=== PATIENT | female | born 1935 | race Caucasian/White ===

== ENCOUNTER 2020-04-05 07:23 | Outpatient (REF) | payer MEDICARE, SELFPAY ==
[2020-04-05 07:47] LABS: Hematocrit 36.5 % (37-47); Hemoglobin 11.8 g/dl (12.0-16.0); Mean Corpuscular HGB Conc 32.3 g/dl (31.0-35.0); Mean Corpuscular Hemoglobin 29.2 pg (27.0-33.0); Mean Corpuscular Volume 90.3 fL (80-98); Mean Platelet Volume 11.2 fL (9.4-12.3); Platelet Count 251 X10*3/uL (160-400); Red Blood Count 4.04 X10*6/uL (4.20-5.50); White Blood Count 8.1 X10*3/uL (4.8-10.8)
[2020-04-05 08:05] LABS: Alanine Aminotransferase 19 U/L (0-31); Albumin Level 4.4 g/dL (3.5-5.0); Alkaline Phosphatase 43 U/L (39-117); Anion Gap 12 (12-20); Aspartate Amino Transferase 18 U/L (5-31); Bilirubin Direct < 0.2 mg/dL (0.0-0.5); Bilirubin Total 0.3 mg/dL (0.0-1.0); Blood Urea Nitrogen 29 mg/dL (9-16); Calcium 9.5 mg/dL (8.4-10.2); Carbon Dioxide 30 mmol/L (22-29); Chloride 102 mmol/L (96-108); Cholesterol 172 mg/dL; Estimated Glomerular Filt Rate 41; Glucose Random 134 mg/dL (60-115); HDL Cholesterol 59 mg/dL; LDL Cholesterol Calculated 88 mg/dl; Sodium 140 mmol/L (135-145); Total Protein 7.6 g/dL (6.5-8.0); Triglycerides 128 mg/dL
== END 2020-04-05 07:24 | disposition home or self-care (01) ==
LOC: HO.LAB 07:23
PROVIDERS: Visit Provider Internal Medicine
DX: I10 Essential (primary) hypertension (principal); M47.9 Spondylosis, unspecified; F41.1 Generalized anxiety disorder
CPT/HCPCS: 36415; 80048; 80061; 80076; 85027

== ENCOUNTER → 2020-04-23 10:01 | Outpatient (BNV) | payer MEDICARE, SELFPAY | PROVIDERS: PCP Internal Medicine; Visit Provider Internal Medicine Medical Oncology | DX: C50.912 Malignant neoplasm of unspecified site of left female breast (principal) | CPT/HCPCS: 99213; 99214; 99443 ==

== ENCOUNTER → 2020-05-14 10:24 | Outpatient (BNVA) | payer MEDICARE, SELFPAY | PROVIDERS: PCP Internal Medicine; Visit Provider Surgery | DX: D05.12 Intraductal carcinoma in situ of left breast (principal) | CPT/HCPCS: 99212 ==

== ENCOUNTER → 2020-08-30 13:45 | Outpatient (BNVA) | payer MEDICARE, SELFPAY | PROVIDERS: Visit Provider Obstetrics & Gynecology ==

== ENCOUNTER 2020-10-22 12:16 | Outpatient (REF) | payer MEDICARE, SELFPAY ==
--- NOTE | ~2020-10-22 | MM_ITS ---
EXAMINATION: MM DIAGNOSTIC DIGITAL BREAST TOMOSYNTHESIS, BILATERAL CLINICAL INFORMATION: Due for yearly. 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 Probable benign dystrophic calcifications for follow-up, initially noted after first lumpectomy 05/05/2017. COMPARISON: Mammography: 10/18/2019, 10/12/2018, 04/14/2018, 10/05/2017, 10/21/2016, 10/12/2016 TECHNIQUE: Digital breast tomosynthesis is performed in both the craniocaudal and mediolateral oblique views along with computer-aided detection (CAD). Synthesized 2D images are generated from the tomosynthesis. Additional views are obtained: Bilateral magnification CC, bilateral magnification ML. FINDINGS: There are scattered areas of fibroglandular density (ACR BI-RADS breast composition Category b). Post therapy changes left breast are stable. There is stable scarring central upper outer quadrant with some dystrophic calcifications in the scar extending superiorly towards the skin. There is no interval mass or architectural abnormality or developing density. No suspicious calcifications. The axilla is unremarkable. Right breast has some new fine calcifications mid 9:30 o'clock position. These appear likely early vascular and additional magnification views will be reassessed again in 6 months. The remainder of the right breast shows no developing density or interval mass or architectural abnormality. Right axilla is unremarkable. Results are discussed with the patient at time of visit. MM/MM tomosynthesis diagnostic BI IMPRESSION: 1. Right: New calcifications mid 9:30 o'clock position, likely early vascular. 2. Left: Benign post therapy changes. No significant change from prior study. ASSESSMENT: BI-RADS 3: Probably Benign RECOMMENDATION: Diagnostic right mammography in 6 months. This patient's information was entered into a reminder system with a target due date for their next mammogram.
== END 2020-10-22 12:17 | disposition home or self-care (01) ==
LOC: HO.MAMMO 12:16
PROVIDERS: PCP Internal Medicine; Visit Provider Internal Medicine Medical Oncology
DX: Z85.3 Personal history of malignant neoplasm of breast (principal)
CPT/HCPCS: 77062; 77066

== ENCOUNTER → 2020-11-05 10:38 | Outpatient (BNVA) | payer MEDICARE, SELFPAY | PROVIDERS: PCP Internal Medicine; Visit Provider Surgery | DX: D05.12 Intraductal carcinoma in situ of left breast (principal) | CPT/HCPCS: 99212 ==

== ENCOUNTER 2021-01-09 08:47 | Outpatient (REF) | payer MEDICARE, SELFPAY ==
[2021-01-09 09:25] LABS: Estimated Average Glucose 134 mg/dL; Hemoglobin A1C 133.7917 umol/L; Hemoglobin A1c % 6.3 %
[2021-01-09 09:47] LABS: Cholesterol 178 mg/dL; HDL Cholesterol 54 mg/dL; LDL Cholesterol Calculated 96 mg/dl; Triglycerides 141 mg/dL
== END 2021-01-09 08:48 | disposition home or self-care (01) ==
LOC: HO.LAB 08:47
PROVIDERS: PCP Internal Medicine; Visit Provider Nurse Practitioner Family
DX: R73.9 Hyperglycemia, unspecified (principal); E78.00 Pure hypercholesterolemia, unspecified
CPT/HCPCS: 36415; 80061; 83036

== ENCOUNTER 2021-03-14 05:45 | Emergency (ER) | payer MEDICARE, SELFPAY ==
--- NOTE | ~2021-03-14 | CT_ITS ---
EXAMINATION: CT ABDOMEN AND PELVIS WITHOUT CONTRAST CLINICAL INFORMATION: Right flank pain COMPARISON: CT abdomen pelvis 02/24/2013. TECHNIQUE: Multidetector volumetric imaging was performed from the superior aspect of the liver through the pubic symphysis. Sagittal and coronal reformatted images were obtained on the technologist's workstation. This CT examination was performed using dose optimization techniques as appropriate, variously including the following: *Automated exposure control *Adjustment of mA and/or kV according to patient size (this includes techniques or standardized protocols for targeted exams where dose is matched to indication/reason for exam; i.e. extremities or head) *Use of iterative reconstruction technique DLP: 559 mGy-cm FINDINGS: LUNG BASES: Small hiatal hernia is noted. LIVER, GALLBLADDER, AND BILIARY TREE: The liver is normal in size, shape, and attenuation. No focal hepatic lesion or biliary ductal dilatation is present. A partially calcified gallstone is noted dependently within the gallbladder lumen measuring approximately 2.5 cm in maximum transaxial dimension. No biliary duct dilatation. PANCREAS: Unremarkable. SPLEEN: Unremarkable. ADRENAL GLANDS: Unremarkable. KIDNEYS AND URETERS: Multiple bilateral rounded low density renal lesions which are consistent with simple cyst requiring no additional imaging follow-up. A single 6 mm rounded high density (71 Hounsfield units) focus is present superiorly within the left kidney (series 3 image 30 this finding is without a correlate on the 02/24/2013 examination. BLADDER: No urolithiasis is identified. No ureterectasis or hydronephrosis. No perinephric inflammatory changes. GASTROINTESTINAL TRACT: Normal appendix (series 4 image 458). No intestinal dilatation or mural thickening. Normal sigmoid and small bowel mesentery is. No free intraperitoneal fluid or gas collections. ABDOMINAL WALL: No significant hernia is appreciated. LYMPH NODES: Normal. VASCULAR: Mild scattered calcific atherosclerosis. PELVIC VISCERA: Grossly normal appearance of the uterus. No adnexal lesions. OSSEOUS STRUCTURES: Grade 1 degenerative anterolisthesis L5-S1. Multilevel intervertebral disc space narrowing and vacuum phenomena within the visualized thoracic and lumbar spine. No vertebral body compression deformities. CT/CT abdomen pelvis wo con IMPRESSION: Unenhanced CT of the abdomen pelvis: *No acute abnormalities identified. *No urolithiasis. No hydronephrosis or perinephric inflammatory changes. Normal appendix. *Cholelithiasis. No biliary duct dilatation. *Multilevel chronic spondylosis of the thoracolumbar spine. No vertebral body compression deformities. *Small hiatal hernia. Fleischner guidelines were followed.
[2021-03-14 05:54] VITALS: BP 133/78; PULSE 103; RESP 20; TEMP 36.1; O2SAT 98; BMI 27.1
[2021-03-14 06:39] LABS: MANUAL DIFF FLAG NO
[2021-03-14 06:44] LABS: Basophils Percent Auto 0.5 % (0-2); Eosinophils Absolute Auto 0.1 X10*3/uL (0.0-0.4); Hematocrit 36.6 % (37.0-47.0); Imm Gran Abs Auto 0.02 X10*3/uL (0.00-0.03); Imm Gran Pct Auto 0.3 % (0.0-0.4); Lymphocytes Absolute Auto 2.1 X10*3/uL (1.2-4.9); Lymphocytes Percent Auto 34.8 % (20-40); Mean Corpuscular HGB Conc 32.8 g/dl (31.0-35.0); Mean Corpuscular Volume 88.4 fL (80.0-98.0); Monocytes Absolute Auto 0.8 X10*3/uL (0.1-1.2); Neutrophils Absolute Auto 2.9 x10*3/uL (2.0-8.3); Neutrophils Percent Auto 48.4 % (45-73); Platelet Count 241 X10*3/uL (160-400); Red Blood Count 4.14 X10*6/uL (4.20-5.50); White Blood Count 5.9 X10*3/uL (4.8-10.8)
[2021-03-14 07:15] LABS: Alanine Aminotransferase 20 U/L (0-31); Albumin Level 4.3 g/dL (3.5-5.0); Alkaline Phosphatase 42 U/L (39-117); Anion Gap 13 (12-20); Aspartate Amino Transferase 24 U/L (5-31); Bilirubin Direct < 0.2 mg/dL (0.0-0.5); Bilirubin Total 0.4 mg/dL (0.0-1.0); Blood Urea Nitrogen 23 mg/dL (9-16); Calcium 10.2 mg/dL (8.4-10.2); Carbon Dioxide 26 mmol/L (22-29); Chloride 103 mmol/L (96-108); Creatinine Clr Calc Pharmacy 32.4; Estimated Glomerular Filt Rate 44; Glucose Random 153 mg/dL (60-115); Lipase 47 U/L (8-78); Sodium 138 mmol/L (135-145); Total Protein 7.8 g/dL (6.5-8.0)
--- NOTE | 2021-03-14 07:21 | ED_ITS ---
HPI - Abdominal Pain General Chief Complaint: Abdominal Pain Stated Complaint: lower back pain Time Seen by Provider: 03/14/21 07:05 Source: patient Mode of arrival: ambulatory Limitations: no limitations History of Present Illness MD elicited complaint: flank pain Pertinent past history: none Onset (ago): day(s) (3) Pain Consistency: intermittent Location: L flank Severity: moderate Quality: aching and fullness Radiation: LLQ Migration to: no migration Exacerbating factors: movement Relieving factors: nothing Associated symptoms: nausea Related Data Previous Rx's Medication Instructions Recorded tamoxifen 20 mg tablet 20 mg PO DAILY #90 tab 05/24/20 amlodipine 10 mg tablet 10 mg PO DAILY #90 tab 10/27/20 meloxicam 15 mg tablet 15 mg PO DAILY #90 tab 11/19/20 valsartan 320 1 tab PO DAILY #90 tab 12/13/20 mg-hydrochlorothiazide 25 mg tablet lorazepam 0.5 mg tablet 0.5 mg PO BEDTIME PRN #7 tab 01/07/21 omeprazole 20 mg capsule,delayed 20 mg PO DAILY #90 cap 01/21/21 release cyclobenzaprine 10 mg tablet 5 mg PO TID PRN #14 tab 03/14/21 lidocaine 4 % topical patch 1 patch TOPICAL DAILY PRN #10 ea 03/14/21 Allergies Allergy/AdvReac Type Severity Reaction Status Date / Time stephens [CHERRIES] Allergy Severe ANAPHYLAXIS Verified 01/06/21 13:21 apple [Apple] Allergy Mild ITCHING Verified 01/06/21 13:21 shellfish derived Allergy Mild ITCHING Verified 01/06/21 13:21 carrot [CARROT] Allergy Unknown ITCHING Verified 01/06/21 13:21 strawberry [STRAWBERRY] Allergy Unknown ITCHING Verified 01/06/21 13:21 watermelon Allergy Unknown ITCHING Verified 01/06/21 13:21 pollen extracts [POLLEN] AdvReac Unknown COUGH,SNEEZ Verified 01/06/21 13:21 ING Review of Systems Review of Systems Constitutional : No Weight loss, No Fever, No Chills ENT/Mouth : No sore throat, No Rhinorrhea Eyes: No Swelling, No Redness Cardiovascular : No Chest Pain, No SOB, No Edema Respiratory : No Cough, No Sputum, No Wheezing Gastrointestinal : Positive Nausea, no Vomiting, no Diarrhea, positive abdominal Pain, No Hematochezia, No Melena Genitourinary : No Dysuria, No Urinary Frequency, No Hematuria, No Urgency Musculoskeletal : No joint pain, No Myalgias, No Joint Swelling, pos back pain Skin : No Skin Lesions, No rash Neuro : No Weakness, No Numbness, No Dizziness, No Headache Psych : No Anxiety/Panic, No Depression Heme/Lymph: No Bruising, No Lymphadenopathy Endocrine : No Polyuria, No Polydipsia All other systems reviewed and are negative. Physical Exam Vital Signs: Vital Signs: Last Vital Signs Temp 97.0 F 03/14/21 05:54 Pulse 92 03/14/21 07:55 Resp 16 03/14/21 07:55 BP 137/75 03/14/21 07:55 Pulse Ox 98 03/14/21 07:55 BMI result Body Mass Index 27.1 Appearance: Alert. Oriented X3. No acute distress. Eyes: Pupils equal, round and reactive to light. ENT: Pharynx normal. Neck: Normal inspection. Neck supple. CVS: Normal heart rate and rhythm. Pulses normal. Respiratory: No respiratory distress. Breath sounds normal. Abdomen: Soft and nontender. Back: mild L CVA ttp Skin: Skin warm and dry. Normal skin color. Normal skin turgor. Extremities: No lower extremity edema. No calf ttp Neuro: Oriented X 3. No motor deficit. No sensory deficit. Course Course Course Narrative: negative workup at this time likely back strain stable for DC MDM - Abdominal Pain MDM Narrative Medical decision making narrative: 85 yo female with hx of GERD< HTN, arthritis - here with L flank pain x 3 days and some mild nausea - at this time will obtain basic labs, UA CT scan for renal colic. Dispo per results and findings. Lab Data Result diagrams: 03/14/21 06:32 03/14/21 06:32 Labs: Lab Results 03/14/21 03/14/21 03/14/21 Range/Units 06:32 06:32 07:53 WBC 5.9 (4.8-10.8) X10*3/uL RBC 4.14 L (4.20-5.50) X10*6/uL Hgb 12.0 (12.0-16.0) g/dl Hct 36.6 L (37.0-47.0) % MCV 88.4 (80.0-98.0) fL MCH 29.0 (27.0-33.0) pg MCHC 32.8 (31.0-35.0) g/dl RDW 12.0 (11.0-16.0) % Plt Count 241 (160-400) X10*3/uL MPV 11.0 (9.4-12.3) fL Immature Gran % (Auto) 0.3 (0.0-0.4) % Neut % (Auto) 48.4 (45-73) % Lymph % (Auto) 34.8 (20-40) % Barron % (Auto) 14.0 H (2-11) % Eos % (Auto) 2.0 (0-4) % Baso % (Auto) 0.5 (0-2) % Lymph # (Auto) 2.1 (1.2-4.9) X10*3/uL Barron # (Auto) 0.8 (0.1-1.2) X10*3/uL Eos # (Auto) 0.1 (0.0-0.4) X10*3/uL Baso # (Auto) 0.0 (0.0-0.2) X10*3/uL Abs Immat Gran (auto) 0.02 (0.00-0.03) X10*3/uL Absolute Neuts (auto) 2.9 (2.0-8.3) x10*3/uL Absolute Nucleated RBC 0.000 (0.0-0.012) X10*3/uL Nucleated RBC % (auto) 0.0 (0.0-0.2) /100WBC Sodium 138 (135-145) mmol/L Potassium 4.0 (3.3-5.1) mmol/L Chloride 103 (96-108) mmol/L Carbon Dioxide 26 (22-29) mmol/L Anion Gap 13 (12-20) BUN 23 H (9-16) mg/dL Creatinine 1.18 (0.5-1.4) mg/dL Estim Creat Clear Calc 32.4 Estimated GFR 44 Random Glucose 153 H (60-115) mg/dL Calcium 10.2 (8.4-10.2) mg/dL Total Bilirubin 0.4 (0.0-1.0) mg/dL Direct Bilirubin < 0.2 (0.0-0.5) mg/dL AST 24 (5-31) U/L ALT 20 (0-31) U/L Alkaline Phosphatase 42 (39-117) U/L Total Protein 7.8 (6.5-8.0) g/dL Albumin 4.3 (3.5-5.0) g/dL Lipase 47 (8-78) U/L Urine Color Urine Appearance Urine pH (5.0-8.0) Ur Specific [place] (1.005-1.025) Urine Protein (NEG-TRACE) MG/DL Urine Glucose (UA) (NEG) MG/DL Urine Ketones (NEG) MG/DL Urine Blood (NEG) Urine Nitrite (NEG) Ur Leukocyte Esterase (NEG) COVID-19 (TWIN) Invalid (Negative) COVID-19 Clin Com See Note 03/14/21 Range/Units 07:54 WBC (4.8-10.8) X10*3/uL RBC (4.20-5.50) X10*6/uL Hgb (12.0-16.0) g/dl Hct (37.0-47.0) % MCV (80.0-98.0) fL MCH (27.0-33.0) pg MCHC (31.0-35.0) g/dl RDW (11.0-16.0) % Plt Count (160-400) X10*3/uL MPV (9.4-12.3) fL Immature Gran % (Auto) (0.0-0.4) % Neut % (Auto) (45-73) % Lymph % (Auto) (20-40) % Barron % (Auto) (2-11) % Eos % (Auto) (0-4) % Baso % (Auto) (0-2) % Lymph # (Auto) (1.2-4.9) X10*3/uL Barron # (Auto) (0.1-1.2) X10*3/uL Eos # (Auto) (0.0-0.4) X10*3/uL Baso # (Auto) (0.0-0.2) X10*3/uL Abs Immat Gran (auto) (0.00-0.03) X10*3/uL Absolute Neuts (auto) (2.0-8.3) x10*3/uL Absolute Nucleated RBC (0.0-0.012) X10*3/uL Nucleated RBC % (auto) (0.0-0.2) /100WBC Sodium (135-145) mmol/L Potassium (3.3-5.1) mmol/L Chloride (96-108) mmol/L Carbon Dioxide (22-29) mmol/L Anion Gap (12-20) BUN (9-16) mg/dL Creatinine (0.5-1.4) mg/dL Estim Creat Clear Calc Estimated GFR Random Glucose (60-115) mg/dL Calcium (8.4-10.2) mg/dL Total Bilirubin (0.0-1.0) mg/dL Direct Bilirubin (0.0-0.5) mg/dL AST (5-31) U/L ALT (0-31) U/L Alkaline Phosphatase (39-117) U/L Total Protein (6.5-8.0) g/dL Albumin (3.5-5.0) g/dL Lipase (8-78) U/L Urine Color STRAW Urine Appearance HAZY Urine pH 5.5 (5.0-8.0) Ur Specific [place] 1.010 (1.005-1.025) Urine Protein NEG (NEG-TRACE) MG/DL Urine Glucose (UA) NEG (NEG) MG/DL Urine Ketones NEG (NEG) MG/DL Urine Blood NEG (NEG) Urine Nitrite NEG (NEG) Ur Leukocyte Esterase NEG (NEG) COVID-19 (TWIN) (Negative) COVID-19 Clin Com Discharge Plan Discharge Clinical Impression: Back strain Qualifiers: Encounter type: initial encounter Qualified Code(s): S39.012A - Strain of muscle, fascia and tendon of lower back, initial encounter Patient Disposition: Home, Self-Care Instructions: Back Pain (ED) Additional Instructions: return to ED for any worsening symptoms or concerns Prescriptions: New cyclobenzaprine 10 mg tablet 5 mg PO TID PRN (Reason: muscle spasm) Qty: 14 RF: 0 lidocaine 4 % adhesive patch,medicated 1 patch topical DAILY PRN (Reason: pain) Qty: 10 RF: 0 No Action tamoxifen 20 mg Tablet 20 mg PO DAILY Qty: 90 RF: 6 amlodipine 10 mg tablet 10 mg PO DAILY Qty: 90 RF: 0 meloxicam 15 mg tablet 15 mg PO DAILY Qty: 90 RF: 0 valsartan-hydrochlorothiazide 320-25 mg tablet 1 tab PO DAILY Qty: 90 RF: 1 lorazepam 0.5 mg tablet 0.5 mg PO BEDTIME PRN (Reason: anxiety) Qty: 7 RF: 0 omeprazole 20 mg capsule,delayed release(DR/EC) 20 mg PO DAILY Qty: 90 RF: 1 Referrals: James Donato MD [Primary Care Provider] - 3 days (if not better) [facility] Past Medical History Medical History Essential (primary) hypertension Generalized anxiety disorder GERD (gastroesophageal reflux disease) Osteoarthritis Surgical History History of section History of esophagogastroduodenoscopy (EGD) History of hernia surgery (09/06/13) History of left breast biopsy (04/28/16) S/P lumpectomy of breast (06/08/17) Family History Family History Father No problems noted. Mother No problems noted. Sister Breast cancer Daughter Diabetes mellitus Social History Social History Housing: House Alcohol intake: never Patient Tobacco Use Status: Never used Tobacco e-Cigarette/Vaping Use: Never Used Advance Directives: No Advance Directives Information Provided: Yes service: No Current occupational status: retired
[2021-03-14 07:55] VITALS: BP 137/75; PULSE 92; RESP 16; O2SAT 98
[2021-03-14 08:02] LABS: Appearance Urine HAZY; Color Urine STRAW; Glucose Urine UA NEG (NEG); Leukocyte Esterase Urine NEG (NEG); Nitrite Urine NEG (NEG); PH 5.5 (5.0-8.0); Urine Blood NEG (NEG); Urine Ketones NEG (NEG); Urine Protein NEG (NEG-TRACE)
[2021-03-14] MEDS: Acetaminophen 325 MG TABLET 650 MG PO (08:19)
[2021-03-14] MEDS: Cyclobenzaprine HCl 5 MG TABLET PO (08:19)
[2021-03-14 08:44] LABS: COVID-19 Test Invalid (Negative)
[2021-03-14 08:57] LABS: COVID-19 Test Negative (Negative)
== END 2021-03-14 09:09 | disposition home or self-care (01) ==
PROVIDERS: Emergency Provider Emergency Medicine; PCP Internal Medicine
DX: S39.012A Strain of muscle, fascia and tendon of lower back, initial encounter (principal); X58.XXXA Exposure to other specified factors, initial encounter; Z20.822 Contact with and (suspected) exposure to COVID-19; Y93.9 Activity, unspecified; Y92.9 Unspecified place or not applicable; Y99.9 Unspecified external cause status
CPT/HCPCS: 36415; 74176; 80053; 81003; 82248; 83690; 85025; 87635; 99283; 99284

== ENCOUNTER 2021-04-25 12:41 | Outpatient (REF) | payer MEDICARE, SELFPAY ==
--- NOTE | ~2021-04-25 | MM_ITS ---
EXAMINATION: MM DIAGNOSTIC DIGITAL BREAST TOMOSYNTHESIS, RIGHT CLINICAL INFORMATION: Six-month follow-up calcifications. History of left breast lumpectomy. COMPARISON: Mammography: October 22, 2020 and studies dating back to June 05, 2013 TECHNIQUE: Digital breast tomosynthesis is performed in both the craniocaudal and mediolateral oblique views along with computer-aided detection (CAD). Synthesized 2D images are generated from the tomosynthesis. Additional spot magnification views of the right breast in craniocaudal and 90 degrees mediolateral views performed. FINDINGS: There are scattered areas of fibroglandular density (ACR BI-RADS breast composition Category b). There is a stable parenchymal pattern of the right breast with no new abnormal dominant mass. The grouping of calcifications about the upper outer aspect did not appear to have changed significantly. Recommend 6 month follow-up bilateral mammography with magnification films of the right breast at that time. Results are provided to the patient at time of visit by the technologist. MM/MM tomosynthesis diagnostic RT IMPRESSION: Stable right breast calcifications. ASSESSMENT: BI-RADS 3: Probably Benign RECOMMENDATION: Diagnostic mammography in 6 months. This patient's information was entered into a reminder system with a target due date for their next mammogram.
== END 2021-04-25 12:42 | disposition home or self-care (01) ==
LOC: HO.MAMMO 12:41
PROVIDERS: Visit Provider Internal Medicine Medical Oncology
DX: R92.1 Mammographic calcification found on diagnostic imaging of breast (principal)
CPT/HCPCS: 77061; 77065

== ENCOUNTER 2021-05-08 14:20 | Outpatient (REF) | payer MEDICARE, SELFPAY ==
--- NOTE | ~2021-05-08 | MM_ITS ---
EXAMINATION: BONE DENSITOMETRY CLINICAL INDICATION: Encounter for screening for osteoporosis. COMPARISON: Previous BD dated 06/03/2017 and baseline BD dated 01/26/2006. TECHNIQUE: Using a [employer] DXA System (software version: 13.1) manufactured by [employer] [place], dual-energy x-ray absorptiometry was performed of the lumbar spine and left hip. The images are of good technical quality. Summary results are attached. FINDINGS: AP SPINE L2-L4 (excluding L1): The data of L1-L4 has been changed to exclude the L1 vertebral body, because degenerative changes at this level may cause overestimation of lumbar spine density. Current: BMD 1.183 g/cm2, Z-score 1.6, T-score -0.1, normal, 9.1% increase from previous, 6.5% increase from baseline (<5% change is not significant). Prior: BMD 1.084 g/cm2. Baseline: BMD 1.111 g/cm2. LEFT FEMUR, NECK: Current: BMD 0.872 g/cm2, Z-score 1.0, T-score -1.2, osteopenia. Prior: BMD 0.826 g/cm2. Baseline: BMD 0.882 g/cm2. LEFT FEMUR, TOTAL: Current: BMD 0.998 g/cm2, Z-score 2.0, T-score -0.1, normal, 1.2% decrease from previous, 1.6% decrease from baseline (<5% change is not significant). Prior: BMD 1.010 g/cm2. Baseline: BMD 1.014 g/cm2. IDENTIFIED RISK FACTORS: Rheumatoid arthritis, height loss. Early menopause, secondary osteoporosis. HISTORY OF FRACTURE: None listed. MEDICATIONS: Calcium or multivitamin. MM/XR DEXA axial skeleton IMPRESSION: 1. DIAGNOSIS: Osteopenia based on the lowest T-score value of -1.2 in the femoral neck applying World Health Organization criteria. 2. 10-YEAR FRACTURE RISK PREDICTION, FRAX: Major osteoporotic fracture (clinical spine, forearm, hip or shoulder) 9.6%. Hip fracture 2.4%. 3. Treatment Recommendations: NOF guidelines recommend consideration for treatment in postmenopausal women and men age 50 and older presenting with the following: -A hip or vertebral (clinical or morphometric) fracture. -T-score less than or equal to -2.5 at the femoral neck or spine after appropriate evaluation to exclude secondary causes. -Low bone mass at the hip or spine and a 10-year fracture probability by FRAX of greater than or equal to 3% for hip fracture or greater than or equal to 20% for major osteoporotic fracture based on the [place] adapted WHO algorithm. 4. Other Recommendations: All treatment decisions require clinical judgment and consideration of individual patient factors, including patient preferences, comorbidities, previous drug use, risk factors not captured in the FRAX model (e.g. frailty, falls, vitamin D deficiency, increased bone turnover, interval significant decline in bone density) and possible under or overestimation of fracture risk by FRAX. Additional medical evaluation for secondary cause of low bone mineral density may be appropriate. FUTURE SCAN RECOMMENDATION: People with diagnosed cases of osteoporosis or at high risk for fracture should have regular bone mineral density tests. For patients eligible for Medicare, routine testing is allowed once every 2 years. The testing frequency can be increased to one year for patients who have rapidly progressing disease, those who are receiving or discontinuing medical therapy to restore bone mass, or have additional risk factors.
== END 2021-05-08 14:21 | disposition home or self-care (01) ==
LOC: HO.MAMMO 14:20
PROVIDERS: Visit Provider Nurse Practitioner Family
DX: Z13.820 Encounter for screening for osteoporosis (principal); N95.0 Postmenopausal bleeding; M85.80 Other specified disorders of bone density and structure, unspecified site; Z78.0 Asymptomatic menopausal state; D05.12 Intraductal carcinoma in situ of left breast
CPT/HCPCS: 77080; 99212

== ENCOUNTER 2021-07-08 11:04 | Outpatient (REF) | payer MEDICARE, SELFPAY ==
[2021-07-08 12:26] LABS: Hematocrit 35.8 % (37.0-47.0); Hemoglobin 11.6 g/dl (12.0-16.0); Mean Corpuscular HGB Conc 32.4 g/dl (31.0-35.0); Mean Corpuscular Hemoglobin 28.5 pg (27.0-33.0); Mean Platelet Volume 11.5 fL (9.4-12.3); Platelet Count 239 X10*3/uL (160-400); Red Blood Count 4.07 X10*6/uL (4.20-5.50); Red Cell Distribution Width 12.3 % (11.0-16.0); White Blood Count 7.9 X10*3/uL (4.8-10.8)
[2021-07-08 12:59] LABS: Alanine Aminotransferase 18 U/L (0-31); Albumin Level 4.1 g/dL (3.5-5.0); Alkaline Phosphatase 43 U/L (39-117); Anion Gap 13 (12-20); Aspartate Amino Transferase 19 U/L (5-31); Bilirubin Direct < 0.2 mg/dL (0.0-0.5); Bilirubin Total 0.4 mg/dL (0.0-1.0); Blood Urea Nitrogen 24 mg/dL (9-16); Calcium 9.7 mg/dL (8.4-10.2); Carbon Dioxide 27 mmol/L (22-29); Chloride 104 mmol/L (96-108); Cholesterol 163 mg/dL; Estimated Glomerular Filt Rate 45; Glucose Random 112 mg/dL (60-115); HDL Cholesterol 54 mg/dL; LDL Cholesterol Calculated 73 mg/dl; Potassium 4.2 mmol/L (3.3-5.1); Sodium 140 mmol/L (135-145); Total Protein 7.3 g/dL (6.5-8.0); Triglycerides 184 mg/dL
[2021-07-08 13:16] LABS: Appearance Urine HAZY; Color Urine YELLOW; Glucose Urine UA NEG (NEG); Leukocyte Esterase Urine NEG (NEG); Nitrite Urine NEG (NEG); Urine Blood NEG (NEG); Urine Ketones NEG (NEG); Urine Protein NEG (NEG-TRACE)
[2021-07-08 13:21] LABS: Estimated Average Glucose 134 mg/dL; Hemoglobin A1c % 6.3 %
[2021-07-08 13:22] LABS: Thyroid Stimulating Hormone 3.43 uIU/mL (0.32-4.0)
== END 2021-07-08 11:05 | disposition home or self-care (01) ==
LOC: HO.LAB 11:04
PROVIDERS: PCP Internal Medicine; Visit Provider Internal Medicine
DX: M19.90 Unspecified osteoarthritis, unspecified site (principal); R73.9 Hyperglycemia, unspecified
CPT/HCPCS: 36415; 80048; 80061; 80076; 81003; 83036; 84443; 85027

== ENCOUNTER 2021-10-20 11:47 | Outpatient (REF) | payer MEDICARE, SELFPAY ==
--- NOTE | ~2021-10-20 | XR_ITS ---
EXAMINATION: XR AP STANDING VIEWS OF BOTH KNEES XR LATERAL AND SUNRISE VIEWS OF THE LEFT KNEE CLINICAL INFORMATION: Pain. COMPARISON: None. TECHNIQUE: AP standing views of both knees and lateral and sunrise views of the left knee. FINDINGS: There is mild narrowing with marginal spurring seen involving the lateral joint space compartments bilaterally. No acute fracture or dislocation is evident on AP view. Lateral and sunrise views of the left knee demonstrate minimal amount of suprapatellar fluid. There is some narrowing of the patellofemoral joint with some articular irregularity and spurring, most prominent about the lateral facet. XR/XR knee LT 2V IMPRESSION: Left patellofemoral and bilateral lateral joint space compartment degenerative change.
--- NOTE | ~2021-10-20 | XR_ITS ---
EXAMINATION: XR AP STANDING VIEWS OF BOTH KNEES XR LATERAL AND SUNRISE VIEWS OF THE LEFT KNEE CLINICAL INFORMATION: Pain. COMPARISON: None. TECHNIQUE: AP standing views of both knees and lateral and sunrise views of the left knee. FINDINGS: There is mild narrowing with marginal spurring seen involving the lateral joint space compartments bilaterally. No acute fracture or dislocation is evident on AP view. Lateral and sunrise views of the left knee demonstrate minimal amount of suprapatellar fluid. There is some narrowing of the patellofemoral joint with some articular irregularity and spurring, most prominent about the lateral facet. XR/XR knee standing BI IMPRESSION: Left patellofemoral and bilateral lateral joint space compartment degenerative change.
== END 2021-10-20 11:48 | disposition home or self-care (01) ==
LOC: HO.HOSX 11:47
PROVIDERS: Visit Provider Orthopaedic Surgery
DX: M25.562 Pain in left knee (principal); M25.561 Pain in right knee; M17.0 Bilateral primary osteoarthritis of knee
CPT/HCPCS: 20610; 73560; 73565; 99202; J1100

== ENCOUNTER 2021-10-21 14:24 | Outpatient (REF) | payer MEDICARE, SELFPAY ==
--- NOTE | ~2021-10-21 | MM_ITS ---
EXAMINATION: MM DIAGNOSTIC DIGITAL BREAST TOMOSYNTHESIS, BILATERAL CLINICAL INFORMATION: History left DCIS status post lumpectomy 10/29/2016 and 05/25/2017. Also follow-up probable benign calcifications mid upper outer right breast, possibly vascular. COMPARISON: Mammography: 04/25/2021, 10/22/2020 (diagnostic, BI-RADS 3), 10/18/2019, 10/12/2018 TECHNIQUE: Digital breast tomosynthesis is performed in both the craniocaudal and mediolateral oblique views along with computer-aided detection (CAD). Synthesized 2D images are generated from the tomosynthesis. Additional magnification views right breast are obtained in the CC x2, ML, and MLO views. FINDINGS: There are scattered areas of fibroglandular density (ACR BI-RADS breast composition Category b). Left breast post therapy changes are similar to prior studies. There is stable scarring mid upper outer quadrant with associated dystrophic calcifications extending towards the superior skin. There is no interval mass or architectural abnormality or developing density in either breast. Right breast calcifications for follow-up mid upper outer quadrant appear slightly increased in number. They do not clearly correspond to vascular calcifications. The calcifications vary in size and slightly vary in shape, best noted on the ML and MLO magnification views. Although they may be related to fibroadenomatous change, stereotactic sampling is recommended to confirm. Results are discussed with the patient at time of visit. Stereotactic sampling of the right breast calcifications is recommended. Patient is in agreement. Navigator to call results and recommendation to PCP. MM/MM tomosynthesis diagnostic BI IMPRESSION: Right: -Tightly grouped calcifications mid upper outer quadrant, increased in number and vary in size, not clearly career services representative of vascular calcifications. Left: -Post therapy changes. No mammographic evidence of malignancy. ASSESSMENT: BI-RADS 4: Suspicious (subcategory 4A: Low suspicion for malignancy) RECOMMENDATION: Stereotactic sampling right breast calcifications. This patient's information was entered into a reminder system with a target due date for their next mammogram.
== END 2021-10-21 14:25 | disposition home or self-care (01) ==
LOC: HO.MAMMO 14:24
PROVIDERS: PCP Internal Medicine; Visit Provider Internal Medicine
DX: R92.1 Mammographic calcification found on diagnostic imaging of breast (principal)
CPT/HCPCS: 77062; 77066

== ENCOUNTER → 2021-10-24 08:20 | Outpatient (BNVA) | payer MEDICARE, SELFPAY | PROVIDERS: PCP Internal Medicine; Visit Provider Surgery | DX: R92.8 Other abnormal and inconclusive findings on diagnostic imaging of breast (principal); D05.12 Intraductal carcinoma in situ of left breast | CPT/HCPCS: 99212 ==

== ENCOUNTER 2021-10-29 10:00 | Outpatient (REF) | payer MEDICARE, SELFPAY ==
--- NOTE | ~2021-10-29 | MM_ITS ---
EXAMINATION: STEREOTACTIC TOMOSYNTHESIS-GUIDED VACUUM-ASSISTED BREAST BIOPSY, RIGHT SPECIMEN RADIOGRAPH, RIGHT POST PROCEDURE DIGITAL MAMMOGRAM, RIGHT CLINICAL INFORMATION: Tightly grouped calcifications mid upper outer right breast increased in number and vary in size, possibly fibroadenomatous. 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 COMPARISON: Mammography 10/21/2021, 04/25/2021. TECHNIQUE/PROCEDURE: Informed consent was obtained from the patient after discussion of the benefits, risks, and alternatives to biopsy today. Patient appeared to understand. Gave opportunity for questions. Patient signed consent form. BIOPSY TABLE: [employer] Affirm Prone Biopsy System. LESION: Calcifications mid upper outer right breast. LOCAL ANESTHESIA: 10 mL carbonated 1% lidocaine; 10 mL 1% lidocaine with epinephrine. DERMATOTOMY: Single skin lazara dermatotomy performed. NEEDLE: Moment.meiva 9-gauge vacuum assisted core biopsy device. APPROACH: Lateral medial. TARGETING: Combination of digital breast tomosynthesis and stereotactic digital mammography used for targeting. CORES: 7. CLIP: Packet IslandMark T-shaped marker. SPECIMEN RADIOGRAPH: Specimen radiograph is taken in separate room using digital mammography. The index calcifications are in the excised cores. There are over 10 calcifications in the cores. POST PROCEDURE UNILATERAL DIGITAL MAMMOGRAM: The post biopsy mammogram is performed in separate room using separate digital mammography equipment from the biopsy procedure. CC and ML views are obtained. There are scattered areas of fibroglandular density (breast composition category: b). The clip marker is in position. The calcifications are markedly decreased at the biopsy site. No gross hematoma. The patient tolerated the procedure well. No immediate complications. Home instructions reviewed with the patient. Final pathology results are pending. MM/MM stereotactic biopsy RT IMPRESSION: 1. Digital tomosynthesis-guided core biopsy right breast with clip placement. 2. Specimen radiograph taken and post procedure mammogram. There is satisfactory positioning of the biopsy clip. 3. Final pathology results pending. An addendum report will be issued.
[2021-10-29] MEDS: Sodium Bicarbonate 8.4% 50 MEQ/50 ML VIAL SUBCUT (11:23)
[2021-10-29] MEDS: Lidocaine HCl 1 % 20 ML VIAL 9 ML SUBCUT (11:25)
== END 2021-10-29 10:01 | disposition home or self-care (01) ==
LOC: HO.MAMMO 10:00
PROVIDERS: PCP Internal Medicine; Visit Provider Surgery
DX: R92.8 Other abnormal and inconclusive findings on diagnostic imaging of breast (principal)
CPT/HCPCS: 19081; 88305; A4648

== ENCOUNTER → 2021-11-06 09:56 | Outpatient (BNVA) | payer MEDICARE, SELFPAY | PROVIDERS: PCP Internal Medicine; Visit Provider Surgery | DX: N60.91 Unspecified benign mammary dysplasia of right breast (principal) | CPT/HCPCS: 99212 ==

== ENCOUNTER 2021-11-17 06:43 | Day surgery (SDC) | payer MEDICARE, SELFPAY ==
[2021-11-10 14:40] VITALS: BMI 28.0
--- NOTE | ~2021-11-17 | MM_ITS ---
EXAMINATION: MM MAMMOGRAM GUIDED NEEDLE LOCALIZATION BREAST, RIGHT MM NEEDLE LOCALIZATION SPECIMEN FROM THE RIGHT BREAST CLINICAL INFORMATION: Right atypical ductal hyperplasia bordering on DCIS. Personal history contralateral left DCIS status post lumpectomy 2017 and 2018. COMPARISON: Mammography 10/29/2021, 10/21/2021, 04/25/2021 TECHNIQUE NEEDLE LOC: Proper informed consent is obtained from the patient after discussion of the procedure, potential risks and complications, and alternatives including declining the procedure today. Patient was given an opportunity for questions. The patient appeared to understand. The patient consented to the procedure and signed the consent form. GUIDANCE: Digital mammography. APPROACH: Lateral Medial. TARGET: T shaped biopsy clip marker. ANESTHESIA: Carbonated lidocaine 1%: 5 mL. LOCALIZATION MARKER: Devers MammaLok. 5 cm length. The skin is prepped and local anesthesia administered. The needle is positioned and position assessed with mammography. The wire is hooked into position. Darragh needle protector placed. The patient tolerated the procedure well and had no immediate complication. Procedure results called to medical voucher clerk (Marcelina) for Dr. Casanova. TECHNIQUE SPECIMEN RADIOGRAPH: Imaging of the excised specimen is performed using digital mammography in 1 view. FINDINGS SPECIMEN RADIOGRAPH: The specimen shows the needle and hookwire are delivered intact. The biopsy clip marker and a few calcifications are identified in the specimen. Results were called to Dr. Jose Casanova in the operating room at the time of imaging. MM/MM needle loc RT IMPRESSION: 1. Status post right breast needle localization with wire hooked into position. 2. Post operative specimen radiograph obtained.
[2021-11-17 07:05] VITALS: BP 147/66; PULSE 92; RESP 16; TEMP 36.8; O2SAT 96
[2021-11-17] MEDS: Lactated Ringers 1,000 ML 50 ML IVCONT (07:17)
[2021-11-17] MEDS: Lidocaine HCl 1 % 20 ML VIAL 9 ML SUBCUT (09:01)
[2021-11-17] MEDS: Sodium Bicarbonate 8.4% 50 MEQ/50 ML VIAL SUBCUT (09:02)
--- NOTE | 2021-11-17 09:11 | MHC.SHP ---
Pre-Procedural Eval Section A Date of Service: 11/17/21 The patient is an INPATIENT: No Changes since office visit: Yes Patient answered all questions; No Cold of Flu in the past 2 weeks, No New Medical Problems and No Changes in Medication The History & Physical has been completed within 30 days and I have reviewed it.: Yes Section B Chief Complaint: Unspecified benign mammary dysplasia of (R) breast Allergies: Allergies Allergy/AdvReac Type Severity Reaction Status Date / Time stephens [CHERRIES] Allergy Severe ANAPHYLAXIS Verified 11/06/21 10:03 apple [Apple] Allergy Mild ITCHING Verified 11/06/21 10:03 carrot [CARROT] Allergy Mild ITCHING Verified 11/10/21 14:38 shellfish derived Allergy Mild ITCHING Verified 11/06/21 10:03 strawberry [STRAWBERRY] Allergy Mild ITCHING Verified 11/10/21 14:38 watermelon Allergy Mild ITCHING Verified 11/10/21 14:38 pollen extracts [POLLEN] AdvReac Mild COUGH,SNEEZ Verified 11/10/21 14:38 ING Plan Diagnosis/Plan: Unchanged I have reviewed the history and physical and performed a pertinent physical examination on my patient. No changes have occurred unless specified.
--- NOTE | 2021-11-17 09:20 | P.CONAN_ITS ---
[facility] Active Problems Active Problems: All Active Problems (Updated 11/10/21 @ 14:38 by Cathie Aj RN) Ductal carcinoma in situ (DCIS) of left breast (Acute) Encounter for Medicare annual wellness exam (Acute) Hyperglycemia (Acute) Osteoporosis screening (Acute) Bilateral primary osteoarthritis of knee (Acute) Kendrick cyst (Acute) Abnormal mammogram of right breast (Acute) Atypical ductal hyperplasia of right breast (Acute) GERD (gastroesophageal reflux disease) (Acute) Essential (primary) hypertension (Acute) Osteoarthritis (Acute) Generalized anxiety disorder (Acute) Past Medical History Medical History (Updated 11/10/21 @ 14:38 by Cathie Aj RN) Breast cancer Essential (primary) hypertension Generalized anxiety disorder GERD (gastroesophageal reflux disease) Osteoarthritis Family History Family History Father No problems noted. Mother No problems noted. Sister Breast cancer Daughter Diabetes mellitus Family history of problems with anesthesia: No Surgical History Surgical History (Updated 11/10/21 @ 14:37 by Cathie Aj RN) H/O colonoscopy History of section History of esophagogastroduodenoscopy (EGD) History of left breast biopsy (04/28/16) History of Oscar fundoplication S/P lumpectomy of breast (06/08/17) History of Problems with Anesthesia: No Social History Social History Household Members: Spouse and Children Housing: House Are you a primary health care facilities inspector to a significant other at home: No Do you presently have visiting nurse or other home services: No Alcohol intake: never Patient Tobacco Use Status: Never used Tobacco e-Cigarette/Vaping Use: Never Used Second Hand Smoke Exposure: No Use of substances other than those prescribed or required for medical reasons: No Are you DNR?: No Advance Directives: No Advance Directives Information Provided: Yes service: No Current occupational status: retired Cognitive needs: No Hearing needs: No Vision needs: Yes (GLASSES) Meds Allergies Allergy/AdvReac Type Severity Reaction Status Date / Time stephens [CHERRIES] Allergy Severe ANAPHYLAXIS Verified 11/06/21 10:03 apple [Apple] Allergy Mild ITCHING Verified 11/06/21 10:03 carrot [CARROT] Allergy Mild ITCHING Verified 11/10/21 14:38 shellfish derived Allergy Mild ITCHING Verified 11/06/21 10:03 strawberry [STRAWBERRY] Allergy Mild ITCHING Verified 11/10/21 14:38 watermelon Allergy Mild ITCHING Verified 11/10/21 14:38 pollen extracts [POLLEN] AdvReac Mild COUGH,SNEEZ Verified 11/10/21 14:38 ING Active Medications: Current Medications Fentanyl (Fentanyl Citrate/Pf 100 Mcg/2 Ml Vial) 25 mcg IVPUSH Q5M PRN; Protocol PRN Reason: Pain, Moderate (Pain Scale 4-6 Lactated Ringer's (Lr) 1,000 mls @ 50 mls/hr IVCONT .Q20H DEDRICK Last Admin: 11/17/21 07:17 Dose: 50 mls/hr Lactated Ringer's (Lr) 1,000 mls @ 100 mls/hr IVCONT .Q10H DEDRICK Ondansetron HCl (Ondansetron Hcl 4 Mg/2 Ml Vial) 4 mg IVPUSH ONCE PRN PRN Reason: Nausea and Vomiting Oxycodone HCl (Oxycodone Hcl Immed Release 5 Mg Tablet) 5 mg PO ONCE PRN PRN Reason: Pain, Severe (Pain Scale 7-10) Exam Exam Date and Time: November 17, 2021 0920 Height,Weight and Vital Signs: Height 5 ft 2 in Weight 69.4 kg Last Vital Signs Temp 98.3 F 11/17/21 07:05 Pulse 92 11/17/21 07:05 Resp 16 11/17/21 07:05 BP 147/66 H 11/17/21 07:05 Pulse Ox 96 11/17/21 07:05 O2 Del Method 11/17/21 07:05 Airway Mallampati Class: III TM Dist: >3cm Neck ROM: Full Denture: Upper Partial: Lower Loose/Missing/Broken Teeth: Yes and Lower Heart: rrr Lungs: clear Assessment and Plan Final Anesthetic Review Family History of Problems with Anesthesia: No History of Problems with Anesthesia: No NPO: Yes ASA Class: III Final Preanesthetic Review: No Changes in Pt Med Stat, Meds/Allgs Chart Reviewed, Consent Obtained/Reviewed and Anes Risks/Benef Reviewed Patient Risk: Intermediate Procedure Risk: Low Anesthetic Plan Anesthetic Plan: GA Disposition: Standard PACU
--- NOTE | 2021-11-17 10:59 | W.PM.OPN ---
Operative Note Operative Note Date of Service: 11/17/21 Narrative: Preoperative diagnosis:Right breast DCIS Postoperative diagnosis:same Procedure:Right breast lumpectomy with needle localization Surgeon: Jose Casanova MD Hydraulic Auto Jack Mechanic: Mami Peterson PA-C Anesthesia:General Indications for procedure:86-year-old female patient with a prior history of DCIS of the left breast now presenting with an abnormal cluster of calcifications in the right breast. Subsequent stereotactic guided core biopsy revealed ADH bordering on DCIS of the right breast. Cluster is located in the upper outer quadrant of the right breast. She presents now for a lumpectomy with needle localization. Operative findings: Localizing clip noted within the specimen x-ray. Gross pathology confirmed lesion within the specimen with margin of normal tissue. Specimen: Right breast lumpectomy Estimated blood loss: 10 mL Complications: none Procedure details: patient was brought to the OR placed in a supine position. After administering general anesthesia the patient's right breast is prepped with ChloraPrep and draped in a sterile fashion. A surgical time-out was called the consent confirmed. Patient received preoperative antibiotics and Venodyne boots were in place. Local anesthesia consisting of 0.5% Sensorcaine was then infiltrated around the localizing wire in the upper outer quadrant. Elliptical incision was then created around the localizing wire carried out through subcutaneous tissue. Superior inferior skin flaps were then created just below the dermis. Core of tissue surrounding the localizing needle was then obtained starting in the lateral margin genu on the superior and inferior margin in finally continuing on the medial and posterior margins. The lesion was passed off the table and sent to x-ray for specimen x-ray. This was then sent to pathology for gross specimen evaluation. Hemostasis was assured using electrocautery and free ties of 3-0 Polysorb suture. Wounds were irrigated with saline solution and suctioned dry. Deep breast tissue was then reapproximated using interrupted 3-0 Polysorb sutures. Dermis was reapproximated using interrupted 3-0 Polysorb sutures. Skin was then closed using a running subcuticular 4-0 Polysorb suture. Steri-Strips, 2 x 2 gauze, and Tegaderm were then applied. The patient tolerated the procedure well. Sponge, instrument, and needle counts reported as correct. The patient was transferred to PACU in stable condition.
[2021-11-17 11:00] VITALS: BP 122/61; PULSE 104; RESP 16; TEMP 36.1; O2SAT 96
[2021-11-17 11:05] VITALS: BP 127/59; PULSE 94; RESP 16; O2SAT 100
[2021-11-17 11:10] VITALS: BP 125/56; PULSE 91; RESP 16; O2SAT 97
[2021-11-17 11:15] VITALS: BP 127/60; PULSE 91; RESP 18; O2SAT 95
[2021-11-17 11:30] VITALS: BP 131/63; PULSE 88; RESP 16; TEMP 36.2; O2SAT 95
== END 2021-11-17 12:33 | disposition home or self-care (01) ==
PROVIDERS: PCP Internal Medicine; Visit Provider Surgery
PROC: (CPT 19301; principal; 2021-11-17 09:10)
DX: N60.91 Unspecified benign mammary dysplasia of right breast (principal); D05.11 Intraductal carcinoma in situ of right breast; Z79.810 Long term (current) use of selective estrogen receptor modulators (SERMs); I10 Essential (primary) hypertension; F41.1 Generalized anxiety disorder; K21.9 Gastro-esophageal reflux disease without esophagitis; M19.90 Unspecified osteoarthritis, unspecified site; Z98.890 Other specified postprocedural states; Z79.899 Other long term (current) drug therapy
CPT/HCPCS: 19301; 19281; 88307; 88329; A4648; J0690; J1100; J2405; J2795; J3010

== ENCOUNTER → 2021-11-25 11:20 | Outpatient (BNVA) | payer MEDICARE, SELFPAY | PROVIDERS: PCP Internal Medicine; Visit Provider Surgery | DX: Z48.89 Encounter for other specified surgical aftercare (principal); N60.91 Unspecified benign mammary dysplasia of right breast; Z86.000 Personal history of in-situ neoplasm of breast | CPT/HCPCS: 99212 ==

== ENCOUNTER 2022-01-07 14:53 | Outpatient (REF) | payer MEDICARE, SELFPAY ==
[2022-01-07 15:25] LABS: Hematocrit 36.4 % (37.0-47.0); Hemoglobin 12.2 g/dl (12.0-16.0); Mean Corpuscular HGB Conc 33.5 g/dl (31.0-35.0); Mean Corpuscular Volume 86.5 fL (80.0-98.0); Mean Platelet Volume 10.9 fL (9.4-12.3); Platelet Count 240 X10*3/uL (160-400); Red Blood Count 4.21 X10*6/uL (4.20-5.50); Red Cell Distribution Width 12.2 % (11.0-16.0); White Blood Count 7.3 X10*3/uL (4.8-10.8)
--- NOTE | 2022-01-07 15:29 | ECG_ITS ---
Test Reason : PRE OP Blood Pressure : / mmHG Vent. Rate : 093 BPM Atrial Rate : 093 BPM P-R Int : 180 ms QRS Dur : 086 ms QT Int : 372 ms P-R-T Axes : 059 -31 041 degrees QTc Int : 462 ms Normal sinus rhythm RSR' or QR pattern in V1 suggests right ventricular conduction delay Left anterior fascicular block Minimal voltage criteria for LVH, may be normal variant ( R in aVL ) Abnormal ECG When compared with ECG of 10-JUN-2007 13:22, No significant change was found Referred By: Mariah Howard Electronically Signed By:MARC KING MD
[2022-01-07 15:33] LABS: Estimated Average Glucose 131 mg/dL; Hemoglobin A1c % 6.2 %
[2022-01-07 15:34] LABS: INTERNATIONAL NORM RATIO 0.9 (0.9-1.1); Prothrombin Time 10.7 SEC (10.0-13.1)
[2022-01-07 15:50] LABS: Anion Gap 17 (12-20); Blood Urea Nitrogen 23 mg/dL (9-16); Calcium 10.2 mg/dL (8.4-10.2); Carbon Dioxide 24 mmol/L (22-29); Chloride 102 mmol/L (96-108); Estimated Glomerular Filt Rate 43; Glucose Random 124 mg/dL (60-115); Potassium 4.1 mmol/L (3.3-5.1); Sodium 139 mmol/L (135-145)
[2022-01-07 16:06] LABS: TSH reflex Free T4 3.46 uIU/mL (0.32-4.0)
== END 2022-01-07 14:54 | disposition home or self-care (01) ==
LOC: HO.LAB 14:53
PROVIDERS: Visit Provider Nurse Practitioner Family
DX: Z01.818 Encounter for other preprocedural examination (principal)
CPT/HCPCS: 36415; 80048; 83036; 84443; 85027; 85610; 93005

== ENCOUNTER → 2022-02-26 13:56 | Outpatient (BNVA) | payer MEDICARE, SELFPAY | PROVIDERS: PCP Internal Medicine; Visit Provider Surgery | DX: N60.91 Unspecified benign mammary dysplasia of right breast (principal); Z86.000 Personal history of in-situ neoplasm of breast | CPT/HCPCS: 99212 ==

== ENCOUNTER → 2022-08-28 11:32 | Outpatient (BNVA) | payer MEDICARE, SELFPAY | PROVIDERS: PCP Internal Medicine; Visit Provider Surgery | DX: D05.12 Intraductal carcinoma in situ of left breast (principal); N60.91 Unspecified benign mammary dysplasia of right breast | CPT/HCPCS: 99212 ==

== ENCOUNTER 2022-09-09 07:03 | Outpatient (REF) | payer MEDICARE, SELFPAY ==
[2022-09-09 07:41] LABS: Hematocrit 37.6 % (37.0-47.0); Hemoglobin 12.2 g/dl (12.0-16.0); Mean Corpuscular HGB Conc 32.4 g/dl (31.0-35.0); Mean Corpuscular Volume 89.3 fL (80.0-98.0); Mean Platelet Volume 10.3 fL (9.4-12.3); Platelet Count 255 X10*3/uL (160-400); Red Blood Count 4.21 X10*6/uL (4.20-5.50); Red Cell Distribution Width 12.2 % (11.0-16.0); White Blood Count 6.5 X10*3/uL (4.8-10.8)
[2022-09-09 07:54] LABS: Estimated Average Glucose 126 mg/dL
[2022-09-09 08:15] LABS: Alanine Aminotransferase 14 U/L (0-31); Albumin Level 4.4 g/dL (3.5-5.0); Alkaline Phosphatase 46 U/L (39-117); Anion Gap 13 (12-20); Aspartate Amino Transferase 18 U/L (5-31); Bilirubin Direct 0.1 mg/dL (0.0-0.5); Bilirubin Total 0.5 mg/dL (0.0-1.0); Blood Urea Nitrogen 30 mg/dL (9-16); Calcium 10.4 mg/dL (8.4-10.2); Carbon Dioxide 27 mmol/L (22-29); Chloride 105 mmol/L (96-108); Cholesterol 192 mg/dL; Estimated Glomerular Filt Rate 37; Glucose Random 127 mg/dL (60-115); HDL Cholesterol 55 mg/dL; LDL Cholesterol Calculated 116 mg/dl; Sodium 141 mmol/L (135-145); Total Protein 7.8 g/dL (6.5-8.0); Triglycerides 107 mg/dL
[2022-09-09 08:18] LABS: Thyroid Stimulating Hormone 3.18 uIU/mL (0.32-4.0)
[2022-09-09 09:30] LABS: Appearance Urine Clear; Color Urine Yellow; Glucose Urine UA Negative (Negative); Leukocyte Esterase Urine Small (1+) (Negative); Nitrite Urine Negative (Negative); Specific Gravity - Urine 1.015 (1.005-1.025); UMIC TRIGGER UA YES; Urine Blood Negative (Negative); Urine Ketones Negative (Negative); Urine Protein Negative (Neg-Trace)
[2022-09-09 09:46] LABS: Bacteria Urine None Seen (None Seen); Hyaline Casts Urine 0-2 /LPF (0-2); RBC Urine 0-2 /HPF (0-2); Squamous Epithelial Cell Urine 0-2 /HPF (0-2); WBC Urine 0-5 /HPF (0-5)
== END 2022-09-09 07:04 | disposition home or self-care (01) ==
LOC: HO.LAB 07:03
PROVIDERS: PCP Internal Medicine; Visit Provider Internal Medicine
DX: F41.1 Generalized anxiety disorder (principal); R73.9 Hyperglycemia, unspecified; I10 Essential (primary) hypertension
CPT/HCPCS: 36415; 80048; 80061; 80076; 81001; 83036; 84443; 85027

== ENCOUNTER 2022-10-23 12:19 | Outpatient (REF) | payer MEDICARE, SELFPAY ==
--- NOTE | ~2022-10-23 | MM_ITS ---
EXAMINATION: MM DIAGNOSTIC DIGITAL BREAST TOMOSYNTHESIS, BILATERAL CLINICAL INFORMATION: The patient is status post prior conservatively treated left breast cancer diagnosed in 2016. She is also status post excision of right breast atypical ductal hyperplasia and borderline DCIS diagnosed from stereotactic biopsy in October 2021. Subsequent right breast needle localization revealed no residual disease. She presents for new baseline diagnostic mammography. COMPARISON: Mammography: This study is compared with prior examinations dating back to September 2019. TECHNIQUE: Digital breast tomosynthesis is performed in both the craniocaudal and mediolateral oblique views along with computer-aided detection (CAD). Synthesized 2D images are generated from the tomosynthesis. FINDINGS: There are scattered areas of fibroglandular density (ACR BI-RADS breast composition Category b). There are postsurgical changes in each breast. There are unchanged, benign calcifications in the upper quadrant of the left breast. There are no mammographic signs of malignancy at the current time. MM/MM tomosynthesis diagnostic BI IMPRESSION: Postsurgical changes in each breast. No mammographic signs of malignancy at the current time. Results are provided to the patient at time of visit by the technologist. ASSESSMENT: BI-RADS BI-RADS 2 - Benign Findings RECOMMENDATION: 1 year F/U This patient's information was entered into a reminder system with a target due date for their next mammogram.
== END 2022-10-23 12:20 | disposition home or self-care (01) ==
LOC: HO.MAMMO 12:19
PROVIDERS: PCP Internal Medicine; Visit Provider Surgery
DX: D05.12 Intraductal carcinoma in situ of left breast (principal); N60.91 Unspecified benign mammary dysplasia of right breast
CPT/HCPCS: 77062; 77066

== ENCOUNTER → 2022-10-23 12:30 | Outpatient (BNV) | payer MEDICARE, SELFPAY | PROVIDERS: PCP Internal Medicine; Visit Provider Radiology Diagnostic Radiology | DX: D05.12 Intraductal carcinoma in situ of left breast (principal) | CPT/HCPCS: 77062; 77066; G0279 ==

== ENCOUNTER 2022-11-17 10:21 | Outpatient (AMB) | payer MEDICARE, SELFPAY ==
--- NOTE | 2022-11-17 10:27 | MHC.OFFWIV ---
Intake Vital Signs 11/17/22 10:28 Weight 157 lb BP 140/70 H Blood Pressure Location Lt brachial Position Sitting Pulse 104 H Pulse Source Pulse Oximeter Temp 97 F Temp Source Temporal Artery Scan Pulse Oximetry (%) 97 Oxygen Delivery Method Room Air Intake Visit Reasons: EST/spots on back that itch and burn Intake Note: Patient here for possible shingles. she states she noticed a rash on her back on wednesday when she went to take a shower, pt states it is painful and itchy. Patient Tobacco Use Status: Never used Tobacco Allergies stephens [CHERRIES] Allergy (Severe, Verified 11/17/22 10:29) ANAPHYLAXIS apple [Apple] Allergy (Mild, Verified 11/17/22 10:29) ITCHING carrot [CARROT] Allergy (Mild, Verified 11/17/22 10:29) ITCHING shellfish derived Allergy (Mild, Verified 11/17/22 10:29) ITCHING strawberry [STRAWBERRY] Allergy (Mild, Verified 11/17/22 10:29) ITCHING watermelon Allergy (Mild, Verified 11/17/22 10:29) ITCHING pollen extracts [POLLEN] Adverse Reaction (Mild, Verified 11/17/22 10:29) COUGH,SNEEZING Do you need a note to return to daycare/school/sports/work: No HPI EST/spots on back that itch and burn HPI Details Patient reports painful/burning and itchy rash on the right side of her upper back that started this past Wednesday. [facility] Medical History Essential (primary) hypertension Generalized anxiety disorder GERD (gastroesophageal reflux disease) Osteoarthritis Surgical History H/O colonoscopy History of cataract surgery History of section History of esophagogastroduodenoscopy (EGD) History of left breast biopsy (04/28/16) History of lumpectomy of right breast (11/17/21) History of Oscar fundoplication S/P lumpectomy of breast (06/08/17) Family History Father No problems noted. Mother No problems noted. Sister Breast cancer Daughter Diabetes mellitus Social History Household Members: Spouse and Children Housing: House Are you a primary child care supervisor to a significant other at home: No Do you presently have visiting nurse or other home services: No Alcohol intake: never Patient Tobacco Use Status: Never used Tobacco e-Cigarette/Vaping Use: Never Used Second Hand Smoke Exposure: No service: No Current occupational status: retired Cognitive needs: No Hearing needs: No Vision needs: Yes (GLASSES) Female Reproductive History Menstrual Age of Menarche: 16 Review of Systems Const All systems reviewed & are unremarkable except as noted in HPI and below Physical Exam Vital Signs: Last Vital Signs Temp 97 F 11/17/22 10:28 Pulse 104 H 11/17/22 10:28 BP 140/70 H 11/17/22 10:28 Pulse Ox 97 11/17/22 10:28 Oxygen Delivery Method Room Air 11/17/22 10:28 Const General: cooperative, healthy appearing and no acute distress Resp Effort & Inspection: normal respiratory effort and able to speak in complete sentences Skin Other: Erythematous, maculopapular rash right upper back following dermatome Extrem General: Yes capillary refill normal and Yes no clubbing, cyanosis or edema Psych Appearance: grossly normal Mental Status: mental status grossly normal Speech and movement: Normal speech and movement present Assessment & Plan Assessment & Plan (1) Herpes zoster: Code(s): B02.9 - Zoster without complications Qualifiers: Herpes zoster complications: without complications Qualified Code(s): B02.9 - Zoster without complications Plan: Rash consistent with herpes zoster. With start on valacyclovir regimen. Advised patient to keep area clean/dry and avoid scratching. If she does not improve the treatment, or if rash worsens or new symptoms develop, she should return to clinic for further evaluation. All questions were answered and she agrees to plan. Medications: New valacyclovir 1,000 mg PO TID 21 tabs 0RF 7 days B02.9 - Zoster without complications Coding Level of Care Code Est Pt Level 3 (35956) Diagnoses Herpes zoster B02.9 Herpes zoster complications: without complications
[2022-11-17 10:28] VITALS: BP 140/70; PULSE 104; TEMP 36.1; O2SAT 97
== END 2022-11-17 11:20 | disposition home or self-care (01) ==
PROVIDERS: PCP Internal Medicine; Visit Provider Nurse Practitioner Family
DX: B02.9 Zoster without complications (principal)
CPT/HCPCS: 99213

== ENCOUNTER 2023-02-25 10:07 | Outpatient (AMB) | payer MEDICARE, SELFPAY ==
[2023-02-25 10:23] VITALS: BP 154/74; PULSE 99; BMI 28.6
--- NOTE | 2023-02-25 10:23 | MHC.OFFVIS ---
Intake Vital Signs 02/25/23 10:23 Height 5 ft 2 in Weight 156 lb 6 oz BMI 28.6 BP 154/74 H Blood Pressure Location Lt brachial Position Sitting Pulse 99 Intake Visit Reasons: 6 mth follow up breast exam Intake Note: Patient is seen in office for 6 month follow up visit, breast exam. Pt c/o: denies any concerns at the time of visit Fashion Intern Required: No Accompanied by: Self / Same As Patient Allergies stephens [CHERRIES] Allergy (Severe, Verified 02/25/23 10:28) ANAPHYLAXIS apple [Apple] Allergy (Mild, Verified 02/25/23 10:28) ITCHING carrot [CARROT] Allergy (Mild, Verified 02/25/23 10:28) ITCHING shellfish derived Allergy (Mild, Verified 02/25/23 10:28) ITCHING strawberry [STRAWBERRY] Allergy (Mild, Verified 02/25/23 10:28) ITCHING watermelon Allergy (Mild, Verified 02/25/23 10:28) ITCHING pollen extracts [POLLEN] Adverse Reaction (Mild, Verified 02/25/23 10:28) COUGH,SNEEZING Medication List - Last Reconciled 02/25/23 by Jose Casanova MD amlodipine 10 mg PO DAILY calcium carbonate-vitamin D3 600 mg-12.5 mcg (500 unit) (Calcium 600 with Vitamin D3) 2 caps PO DAILY exemestane 25 mg PO DAILY lorazepam 0.5 mg PO BEDTIME PRN meloxicam 15 mg PO DAILY omeprazole 20 mg PO DAILY valacyclovir 1,000 mg PO TID 7 days valsartan-hydrochlorothiazide 320-25 mg 1 tab PO DAILY HPI HPI Comments History of Present Illness Details 87-year-old female patient returning for follow-up breast examination. A mammogram dated 10/21/2021 revealed increased calcifications in the right breast not clearly vascular. These were felt to be high suspicion for malignancy and biopsy was recommended (BI-RADS 4). She subsequently underwent a right breast stereotactic guided biopsy at the [facility] on 10/29/2021. 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 A lumpectomy with needle localization was performed on 11/17/2021 to assure complete removal. No further atypical ductal hyperplasia or malignancy was identified. 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 After undergoing a lumpectomy she underwent evaluation by Radiation Oncology. The decision was made to avoid radiation therapy. She was started on tamoxifen for 5 years ( Dr. Russo). She feels well but does complain of arthritis. Her most recent mammogram dated 10/23/2022 revealed no mammographic evidence of malignancy with post therapy changes noted (BI-RADS 2). Follow-up mammogram in 1 year is recommended. [facility] Medical History GERD (gastroesophageal reflux disease) Essential (primary) hypertension Osteoarthritis Generalized anxiety disorder Surgical History History of cataract surgery History of lumpectomy of right breast (11/17/21) H/O colonoscopy History of Oscar fundoplication History of left breast biopsy (04/28/16) History of esophagogastroduodenoscopy (EGD) S/P lumpectomy of breast (06/08/17) History of section Family History Father No problems noted. Mother No problems noted. Sister Breast cancer Daughter Diabetes mellitus Social History Household Members: Spouse and Children Housing: House Are you a primary animal caretaker to a significant other at home: No Do you presently have visiting nurse or other home services: No Alcohol intake: never Patient Tobacco Use Status: Never used Tobacco e-Cigarette/Vaping Use: Never Used Second Hand Smoke Exposure: No service: No Current occupational status: retired Cognitive needs: No Hearing needs: No Vision needs: Yes (GLASSES) Female Reproductive History Menstrual Age of Menarche: 16 Review of Systems Const All systems reviewed & are unremarkable except as noted in HPI and below Card Denies chest pain and Denies irregular heart rhythm Resp Denies cough, Denies excessive phlegm production and Denies wheezing GI Denies abdominal pain Denies nipple discharge Skin/Breast Denies breast swelling, Denies breast skin changes, Denies breast pain, Denies breast mass, Denies change in pigmentation and Denies nipple discharge Camilo/Lymph Denies lymphadenopathy Aller/Immun Denies wheezing Physical Exam Vital Signs: Last Vital Signs Pulse 99 02/25/23 10:23 BP 154/74 H 02/25/23 10:23 BMI result Body Mass Index 28.6 Const General: no acute distress and well developed Nutritional Appearance: well nourished Orientation/consciousness: patient oriented x3 Limitations: no limitations Eyes Sclerae: sclerae normal EOM: EOMs intact bilaterally Chest Other: Left breast: Incision in the left breast is clean and intact without palpable nodules. No skin change, no nipple retraction, no nipple discharge, no palpable mass, no enlarged lymph nodes. Right breast: Incision in the right breast is clean, dry, and intact without redness or discharge. No new skin changes, no nipple retraction, no nipple discharge, no palpable mass, no enlarged lymph nodes Resp Effort & Inspection: normal respiratory effort, no stridor and not tachypneic Skin Other: Warm and dry, no rash Neuro General: patient oriented x3 Extrem General: Yes no clubbing, cyanosis or edema Assessment & Plan Assessment & Plan (1) Ductal carcinoma in situ (DCIS) of left breast: Code(s): D05.12 - Intraductal carcinoma in situ of left breast (2) Atypical ductal hyperplasia of right breast: Code(s): N60.91 - Unspecified benign mammary dysplasia of right breast Plan 87-year-old female patient previous history of DCIS left breast now presenting with atypical ductal hyperplasia bordering on DCIS of the right breast noted on stereotactic guided core biopsy. Right breast lumpectomy with needle localization was performed on 11/17/2021. Pathology revealed no additional atypical hyperplasia or malignancy. The patient will continue her follow-up with Dr. Russo. I have asked her to return approximately 6 months for follow-up examination. Mammogram on 10/23/2022 revealed no mammographic evidence of malignancy (BI-RADS 2). Yearly mammography recommended. Coding Level of Care Code Est Pt Level 3 (13702) Diagnoses Ductal carcinoma in situ (DCIS) of left breast D05.12 Atypical ductal hyperplasia of right breast N60.91
== END 2023-02-25 10:41 | disposition home or self-care (01) ==
PROVIDERS: PCP Internal Medicine; Visit Provider Surgery
DX: D05.12 Intraductal carcinoma in situ of left breast (principal); N60.91 Unspecified benign mammary dysplasia of right breast
CPT/HCPCS: 99213

== ENCOUNTER → 2023-02-25 10:07 | Outpatient (BNVA) | payer MEDICARE, SELFPAY | PROVIDERS: PCP Internal Medicine; Visit Provider Surgery | DX: D05.12 Intraductal carcinoma in situ of left breast (principal); N60.91 Unspecified benign mammary dysplasia of right breast | CPT/HCPCS: 99212 ==

== ENCOUNTER 2023-04-01 13:30 | Outpatient (AMB) | payer MEDICARE, SELFPAY ==
--- NOTE | 2023-04-01 13:39 | MHC.PC.OV ---
Vital Signs 04/01/23 13:43 Height 5 ft 2 in Weight 156 lb BMI 28.5 BP 120/70 Blood Pressure Location Lt brachial Position Sitting Pulse 118 H Pulse Source Pulse Oximeter Pulse Oximetry (%) 96 Oxygen Delivery Method Room Air Intake Visit Reasons: 6mth f/u Intake Note: Patient is here to follow up on HTN, GERD, Osteoarthritis. Breakdown Worker Required: No Director Economic: Not Required per policy Accompanied by: Self / Same As Patient Allergies stephens [CHERRIES] Allergy (Severe, Verified 04/01/23 13:42) ANAPHYLAXIS apple [Apple] Allergy (Mild, Verified 04/01/23 13:42) ITCHING carrot [CARROT] Allergy (Mild, Verified 04/01/23 13:42) ITCHING shellfish derived Allergy (Mild, Verified 04/01/23 13:42) ITCHING strawberry [STRAWBERRY] Allergy (Mild, Verified 04/01/23 13:42) ITCHING watermelon Allergy (Mild, Verified 04/01/23 13:42) ITCHING pollen extracts [POLLEN] Adverse Reaction (Mild, Verified 04/01/23 13:42) COUGH,SNEEZING Tobacco use date assessed: 04/01/23 Fall risk assessment: No Falls in past year Last assessed Fall Risk: 04/01/23 Dental Screening Dental Screen Date: 04/01/23 Did you have a dental visit in the last 12 months?: No Did you have a dental problem in the last 6 months where you did not have access to dental care?: No Was dental information given to patient?: No HPI 6mth f/u HPI Details 87-year-old female presents to the office to discuss her chronic medical conditions. The osteoarthritis in both her knees is worsening. She had seen an orthopedic surgeon who injected a gel which has not been helpful. She has decided to get a replacement procedure done in [place]. Since last office visit she suffered a bout of shingles. [facility] Medical History GERD (gastroesophageal reflux disease) Essential (primary) hypertension Osteoarthritis Generalized anxiety disorder Surgical History History of cataract surgery History of lumpectomy of right breast (11/17/21) H/O colonoscopy History of Oscar fundoplication History of left breast biopsy (04/28/16) History of esophagogastroduodenoscopy (EGD) S/P lumpectomy of breast (06/08/17) History of section Family History Father No problems noted. Mother No problems noted. Sister Breast cancer Daughter Diabetes mellitus Social History Household Members: Spouse and Children Housing: House Are you a primary respiratory care assistant to a significant other at home: No Do you presently have visiting nurse or other home services: No Alcohol intake: never Patient Tobacco Use Status: Never used Tobacco e-Cigarette/Vaping Use: Never Used Second Hand Smoke Exposure: No service: No Current occupational status: retired Cognitive needs: No Hearing needs: No Vision needs: Yes (GLASSES) Female Reproductive History Menstrual Age of Menarche: 16 Questionnaire PHQ-9 Over the last 2 weeks, how often have you been bothered by any of the following problems? 1. Little interest or pleasure in doing things: not at all 2. Feeling down, depressed, or hopeless: not at all 3. Trouble falling or staying asleep, or sleeping too much: not at all 4. Feeling tired or having little energy: not at all 5. Poor appetite or overeating: not at all 6. Feeling bad about yourself - or that you are a failure or have let yourself or your family down: not at all 7. Trouble concentrating on things, such as reading the newspaper or watching television: not at all 8. Moving or speaking so slowly that other people could have noticed. Or the opposite - being so fidgety or restless that you have been moving around a lot more than usual: not at all 9. Thoughts that you would be better off or of hurting yourself in some way: not at all Total score: 0 Depression Screening Interpretation: Negative Depression Screening Done: Yes Source: Developed by Drs. Harinder Tovar, Berkley Lizama, Gray Jules and colleagues, with an educational kimberly from [employer] Thrive Questionnaire Date Thrive assessed: 04/01/23 I am a: Patient What is your living situation today?: I have a steady place to live Within the past 12 months, did the food you bought not last and you didn't have the money to get more?: Never true Within the past 12 months, did you worry whether your food would run out before you got money to buy more?: Never true Do you have trouble paying for medicines?: No Do you have trouble getting transportation to medical appointments?: No Do you have trouble paying your heating and electricity bill?: No Do you have trouble taking care of your child, family member or friend?: No Do you have trouble with day-to-day activities such as bathing, preparing meals, shopping, managing finances, etc.?: No Are you currently unemployed and looking for a job?: No Are you interested in more education?: No Currently or been in a relationship where the following occur: no concerns reported AUDIT C Alcohol Use Questionnaire (AUDIT-C) 1. How often do you have a drink containing alcohol?: Never Total Score: 0 JENNIFER-7 AMB Questionnaire JENNIFER-7 Date JENNIFER - 7 assessed: 04/01/23 Feeling nervous, anxious, or on edge: 1 = Several days Not being able to stop or control worryin = Not at all Worrying too much about different things: 0 = Not at all Trouble relaxin = Not at all Being so restless that it is hard to sit still: 1 = Several days Becoming easily annoyed or irritable: 0 = Not at all Feeling afraid as if something awful might happen: 1 = Several days Total JENNIFER-7 score (0-4 normal; 5-9 mild; 10-14 moderate; 15-21 severe): 3 Source: Developed by Drs. Harinder Tovar, Berkley Lizama, Gray Jules and colleagues, with an educational kimberly from [employer] Physical exam (Primary Care) Vital Signs: Last Vital Signs Pulse 118 H 04/01/23 13:43 BP 120/70 04/01/23 13:43 Pulse Ox 96 04/01/23 13:43 Oxygen Delivery Method Room Air 04/01/23 13:43 BMI result Body Mass Index 28.5 Tobacco/Smoking Status: Tobacco use Status Tobacco use date assessed 04/01/23 04/01/23 13:47 Patient Tobacco Use Status Never used Tobacco 04/01/23 13:47 e-Cigarette/Vaping Use Never Used 04/01/23 13:47 PHQ-9: PHQ-9 Score PHQ-9: Total score 0 04/01/23 13:47 Depression Screening Interpretation: Negative Thrive Assessment: Date of Thrive Assessment Date Thrive assessed 04/01/23 04/01/23 13:47 Currently or been in a relationship where the following occur: no concerns reported Const General: cooperative and healthy appearing Nutritional Appearance: well nourished Orientation/consciousness: patient oriented x3 Limitations: no limitations HENMT Head: Yes normal to inspection Eyes General: appearance normal, both eyes and all related structures Neck Neck: Yes normal visual inspection Chest Chest palpation & inspection: normal palpation of entire chest wall Resp Effort & Inspection: normal respiratory effort Neuro General: patient oriented x3 Extrem Other: Right and left knee: No joint line tenderness. Full range of motion. Assessment and Plan Assessment & Plan (1) Bilateral primary osteoarthritis of knee: Code(s): M17.0 - Bilateral primary osteoarthritis of knee Plan: Since the pain is affecting her quality of life, patient should proceed with the surgical option. Her regular medications have been refilled. Medications: Refilled valsartan-hydrochlorothiazide 320-25 mg 1 tab PO DAILY 90 tabs 1RF meloxicam 15 mg PO DAILY 14 tabs 0RF omeprazole 20 mg PO DAILY 90 caps 1RF lorazepam 0.5 mg PO BEDTIME PRN 20 tabs 1RF anxiety Coding Level of Care Code Est Pt Level 3 (00270) Diagnoses Bilateral primary osteoarthritis of knee M17.0
[2023-04-01 13:43] VITALS: BP 120/70; PULSE 118; O2SAT 96; BMI 28.5
== END 2023-04-01 14:20 | disposition home or self-care (01) ==
PROVIDERS: PCP Internal Medicine; Visit Provider Internal Medicine
DX: M17.0 Bilateral primary osteoarthritis of knee (principal)
CPT/HCPCS: 99213

== ENCOUNTER 2023-04-01 14:34 | Outpatient (REF) | payer MEDICARE, SELFPAY ==
[2023-04-01 15:26] LABS: Hematocrit 41.2 % (37.0-47.0); Hemoglobin 13.3 g/dl (12.0-16.0); Mean Corpuscular HGB Conc 32.3 g/dl (31.0-35.0); Mean Corpuscular Hemoglobin 28.7 pg (27.0-33.0); Mean Platelet Volume 10.7 fL (9.4-12.3); Platelet Count 293 X10*3/uL (160-400); Red Blood Count 4.63 X10*6/uL (4.20-5.50); Red Cell Distribution Width 12.3 % (11.0-16.0); White Blood Count 8.2 X10*3/uL (4.8-10.8)
[2023-04-01 16:06] LABS: Erythrocyte Sedimentation Rate 21 MM/HR (0-20)
[2023-04-01 16:14] LABS: Alanine Aminotransferase 19 U/L (0-31); Albumin Level 4.6 g/dL (3.5-5.0); Alkaline Phosphatase 53 U/L (39-117); Anion Gap 15 (12-20); Aspartate Amino Transferase 21 U/L (5-31); Bilirubin Direct 0.1 mg/dL (0.0-0.5); Bilirubin Total 0.3 mg/dL (0.0-1.0); Blood Urea Nitrogen 28 mg/dL (9-16); Calcium 10.6 mg/dL (8.4-10.2); Carbon Dioxide 30 mmol/L (22-29); Chloride 100 mmol/L (96-108); Cholesterol 209 mg/dL (<200); Estimated Glomerular Filt Rate 40; Glucose Random 133 mg/dL (60-115); HDL Cholesterol 58 mg/dL (>40); LDL Cholesterol Calculated 114 mg/dL (<100); Sodium 141 mmol/L (135-145); Total Protein 8.4 g/dL (6.5-8.0); Triglycerides 189 mg/dL (<150)
[2023-04-01 16:29] LABS: Thyroid Stimulating Hormone 3.24 uIU/mL (0.32-4.0)
[2023-04-01 16:55] LABS: Appearance Urine Clear; Color Urine Yellow; Glucose Urine UA Negative (Negative); Leukocyte Esterase Urine Small (1+) (Negative); Nitrite Urine Negative (Negative); PH 5.5 (5.0-9.0); UMIC TRIGGER UA YES; Urine Blood Negative (Negative); Urine Ketones Trace mg/dL (Negative); Urine Protein Negative (Neg-Trace)
[2023-04-01 17:08] LABS: Bacteria Urine None Seen (None Seen); Hyaline Casts Urine 0-2 /LPF (0-2); RBC Urine 0-2 /HPF (0-2); Squamous Epithelial Cell Urine 0-2 /HPF (0-2); WBC Urine 0-5 /HPF (0-5)
== END 2023-04-01 14:35 | disposition home or self-care (01) ==
LOC: HO.LAB 14:34
PROVIDERS: PCP Internal Medicine; Visit Provider Internal Medicine
DX: I10 Essential (primary) hypertension (principal); M19.90 Unspecified osteoarthritis, unspecified site
CPT/HCPCS: 36415; 80048; 80061; 80076; 81001; 84443; 85027; 85652

== ENCOUNTER 2023-05-12 13:49 | Outpatient (REF) | payer MEDICARE, SELFPAY ==
--- NOTE | ~2023-05-12 | MM_ITS ---
EXAMINATION: BONE DENSITOMETRY CLINICAL INDICATION: Osteopenia. COMPARISON: Previous BD dated 05/08/2021 and baseline BD dated 01/26/2006. TECHNIQUE: Using a [employer] DXA System (software version: 13.1) manufactured by [employer], dual-energy x-ray absorptiometry was performed of the lumbar spine and left hip. The images are of good technical quality. Summary results are attached. FINDINGS: LEFT FEMUR, NECK: Current: BMD 0.878 g/cm2, Z-score 1.1, T-score -1.2, osteopenia. Prior: BMD 0.872 g/cm2. Baseline: BMD 0.882 g/cm2. LEFT FEMUR, TOTAL: Current: BMD 1.031 g/cm2, Z-score 2.4, T-score 0.2, normal, 3.3% increase from previous, 1.7% increase from baseline (<5% change is not significant). Prior: BMD 0.998 g/cm2. Baseline: BMD 1.014 g/cm2. AP SPINE L1-L4: Current: BMD 1.206 g/cm2, Z-score 2.0, T-score 0.2, normal, 0.2% increase from previous, 14.3% increase from baseline (<5% change is not significant). Prior: BMD 1.204 g/cm2. Baseline: BMD 1.055 g/cm2. IDENTIFIED RISK FACTORS: Early menopause, secondary osteoporosis, height loss. HISTORY OF FRACTURE: None listed. MEDICATIONS: Calcium supplements or multivitamin, vitamin D. MM/XR DEXA axial skeleton IMPRESSION: 1. DIAGNOSIS: Osteopenia based on the lowest T-score value of -1.2 in the femoral neck applying World Health Organization criteria. 2. 10-YEAR FRACTURE RISK PREDICTION, FRAX: Major osteoporotic fracture (clinical spine, forearm, hip or shoulder) 7.1%. Hip fracture 1.7%. 3. Treatment Recommendations: NOF guidelines recommend consideration for treatment in postmenopausal women and men age 50 and older presenting with the following: -A hip or vertebral (clinical or morphometric) fracture. -T-score less than or equal to -2.5 at the femoral neck or spine after appropriate evaluation to exclude secondary causes. -Low bone mass at the hip or spine and a 10-year fracture probability by FRAX of greater than or equal to 3% for hip fracture or greater than or equal to 20% for major osteoporotic fracture based on the [place] adapted WHO algorithm. 4. Other Recommendations: All treatment decisions require clinical judgment and consideration of individual patient factors, including patient preferences, comorbidities, previous drug use, risk factors not captured in the FRAX model (e.g. frailty, falls, vitamin D deficiency, increased bone turnover, interval significant decline in bone density) and possible under or overestimation of fracture risk by FRAX. Additional medical evaluation for secondary cause of low bone mineral density may be appropriate. FUTURE SCAN RECOMMENDATION: People with diagnosed cases of osteoporosis or at high risk for fracture should have regular bone mineral density tests. For patients eligible for Medicare, routine testing is allowed once every 2 years. The testing frequency can be increased to one year for patients who have rapidly progressing disease, those who are receiving or discontinuing medical therapy to restore bone mass, or have additional risk factors.
== END 2023-05-12 13:50 | disposition home or self-care (01) ==
LOC: HO.MAMMO 13:49
PROVIDERS: PCP Internal Medicine; Visit Provider Internal Medicine Medical Oncology
DX: Z13.820 Encounter for screening for osteoporosis (principal); D05.82 Other specified type of carcinoma in situ of left breast; D05.10 Intraductal carcinoma in situ of unspecified breast; Z78.0 Asymptomatic menopausal state
CPT/HCPCS: 77080

== ENCOUNTER 2023-07-15 13:49 | Outpatient (AMB) | payer MEDICARE, SELFPAY ==
--- NOTE | 2023-07-15 13:53 | MHC.PC.OV ---
Vital Signs 07/15/23 13:54 Height 5 ft 2 in Weight 158 lb 2 oz BMI 28.9 BP 132/68 Blood Pressure Location Lt brachial Position Sitting Pulse 120 H Pulse Source Pulse Oximeter Pulse Oximetry (%) 97 Oxygen Delivery Method Room Air Intake Visit Reasons: 3mth f/u Intake Note: Patient is here to follow up on HTN, GERD, JENNIFER, Hyperglycemia. [employer] Etcher Stripper Required: No Optical Store Manager: Not Required per policy Accompanied by: Self / Same As Patient Allergies stephens [CHERRIES] Allergy (Severe, Verified 07/15/23 13:54) ANAPHYLAXIS apple [Apple] Allergy (Mild, Verified 07/15/23 13:54) ITCHING carrot [CARROT] Allergy (Mild, Verified 07/15/23 13:54) ITCHING shellfish derived Allergy (Mild, Verified 07/15/23 13:54) ITCHING strawberry [STRAWBERRY] Allergy (Mild, Verified 07/15/23 13:54) ITCHING watermelon Allergy (Mild, Verified 07/15/23 13:54) ITCHING pollen extracts [POLLEN] Adverse Reaction (Mild, Verified 07/15/23 13:54) COUGH,SNEEZING Tobacco use date assessed: 07/15/23 Fall risk assessment: No Falls in past year Last assessed Fall Risk: 07/15/23 Dental Screening Dental Screen Date: 04/01/23 HPI 3mth f/u HPI Details 88-year-old female presents to the office to discuss her chronic medical conditions. Since last office visit patient underwent a right knee replacement. Procedure went well. Continues to have physical therapy twice a week. Able to ambulate. Yet to start driving. Blood work done in March showed a slightly elevated blood sugar. [facility] Medical History GERD (gastroesophageal reflux disease) Essential (primary) hypertension Osteoarthritis Generalized anxiety disorder Surgical History History of right knee joint replacement History of cataract surgery History of lumpectomy of right breast (11/17/21) H/O colonoscopy History of Oscar fundoplication History of left breast biopsy (04/28/16) History of esophagogastroduodenoscopy (EGD) S/P lumpectomy of breast (06/08/17) History of section Family History Father No problems noted. Mother No problems noted. Sister Breast cancer Daughter Diabetes mellitus Social History Household Members: Spouse and Children Housing: House Are you a primary vp care management to a significant other at home: No Do you presently have visiting nurse or other home services: No Alcohol intake: never Patient Tobacco Use Status: Never used Tobacco e-Cigarette/Vaping Use: Never Used Second Hand Smoke Exposure: No service: No Current occupational status: retired Cognitive needs: No Hearing needs: No Vision needs: Yes (GLASSES) Female Reproductive History Menstrual Age of Menarche: 16 Questionnaire Thrive Questionnaire Date Thrive assessed: 04/01/23 JENNIFER-7 AMB Questionnaire JENNIFER-7 Date JENNIFER - 7 assessed: 04/01/23 Source: Developed by Drs. Harinder Tovar, Berkley Lizama, Gray Jules and colleagues, with an educational kimberly from [employer]. Physical exam (Primary Care) Vital Signs: Last Vital Signs Pulse 120 H 07/15/23 13:54 BP 132/68 07/15/23 13:54 Pulse Ox 97 07/15/23 13:54 Oxygen Delivery Method Room Air 07/15/23 13:54 Care Plan Goal for BP management: Blood pressure is in range. BMI result Body Mass Index 28.9 Tobacco/Smoking Status: Tobacco use Status Tobacco use date assessed 07/15/23 07/15/23 14:03 Patient Tobacco Use Status Never used Tobacco 07/15/23 14:03 e-Cigarette/Vaping Use Never Used 07/15/23 14:03 Thrive Assessment: Date of Thrive Assessment Date Thrive assessed 04/01/23 07/15/23 14:03 Const General: cooperative and healthy appearing Nutritional Appearance: well nourished Orientation/consciousness: patient oriented x3 Limitations: no limitations HENMT Head: Yes normal to inspection Eyes General: appearance normal, both eyes and all related structures Neck Neck: Yes normal visual inspection Chest Chest palpation & inspection: normal palpation of entire chest wall Resp Effort & Inspection: normal respiratory effort Neuro General: patient oriented x3 Results AMB Hemoglobin A1c AMB Hemoglobin A1c 6.7 % Last Edit by MIGEL Reina on 07/15/23 14:43 Assessment and Plan Assessment & Plan (1) Bilateral primary osteoarthritis of knee: Code(s): M17.0 - Bilateral primary osteoarthritis of knee Plan: Patient has stopped taking tramadol. (2) Hyperglycemia: Code(s): R73.9 - Hyperglycemia, unspecified Plan: A1c is 6.7. No medications started. Will control with diet and exercise (3) Essential (primary) hypertension: Code(s): I10 - Essential (primary) hypertension Plan: Blood pressure is in range. Continue current medications. (4) Generalized anxiety disorder: Code(s): F41.1 - Generalized anxiety disorder Plan: Okay to use alprazolam intermittently. Orders: Orders AMB Hemoglobin A1c Today R73.9 - Hyperglycemia, unspecified Coding Level of Care Code Est Pt Level 4 (25479) Diagnoses Bilateral primary osteoarthritis of knee M17.0 Hyperglycemia R73.9 Essential (primary) hypertension I10 Generalized anxiety disorder F41.1
[2023-07-15 13:54] VITALS: BP 132/68; PULSE 120; O2SAT 97; BMI 28.9
== END 2023-07-15 14:57 | disposition home or self-care (01) ==
PROVIDERS: PCP Internal Medicine; Visit Provider Internal Medicine
DX: M17.0 Bilateral primary osteoarthritis of knee (principal); R73.9 Hyperglycemia, unspecified; I10 Essential (primary) hypertension; F41.1 Generalized anxiety disorder
CPT/HCPCS: 83036; 99214

== ENCOUNTER 2023-09-03 09:02 | Outpatient (AMB) | payer MEDICARE, SELFPAY ==
--- NOTE | 2023-09-03 09:09 | MHC.OFFVIS ---
Vital Signs 09/03/23 09:19 Height 5 ft 2 in Weight 154 lb 4 oz BMI 28.2 BP 133/67 Blood Pressure Location Lt brachial Position Sitting Pulse 101 H Intake Visit Reasons: 6 month follow up breast exam Intake Note: Patient is seen in office for 6 month follow up visit, breast exam. Pt c/o: denies any concerns regarding the breast mm: 10/23/22 Library Helper Required: No Accompanied by: Self / Same As Patient Allergies stephens [CHERRIES] Allergy (Severe, Verified 09/03/23 09:20) ANAPHYLAXIS apple [Apple] Allergy (Mild, Verified 09/03/23 09:20) ITCHING carrot [CARROT] Allergy (Mild, Verified 09/03/23 09:20) ITCHING shellfish derived Allergy (Mild, Verified 09/03/23 09:20) ITCHING strawberry [STRAWBERRY] Allergy (Mild, Verified 09/03/23 09:20) ITCHING watermelon Allergy (Mild, Verified 09/03/23 09:20) ITCHING pollen extracts [POLLEN] Adverse Reaction (Mild, Verified 09/03/23 09:20) COUGH,SNEEZING HPI Comments Details: 88-year-old female patient returning for follow-up breast examination. A mammogram dated 10/21/2021 revealed increased calcifications in the right breast not clearly vascular. These were felt to be high suspicion for malignancy and biopsy was recommended (BI-RADS 4). She subsequently underwent a right breast stereotactic guided biopsy at the [facility] on 10/29/2021. 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 A lumpectomy with needle localization was performed on 11/17/2021 to assure complete removal. No further atypical ductal hyperplasia or malignancy was identified. 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 After undergoing a lumpectomy she underwent evaluation by Radiation Oncology. The decision was made to avoid radiation therapy. She was started on tamoxifen for 5 years ( Dr. Russo). She feels well but does complain right knee pain after a knee replacement approximately 2 months ago. She continues with physical therapy for the right knee. Her most recent mammogram dated 10/23/2022 revealed no mammographic evidence of malignancy with post therapy changes noted (BI-RADS 2). She has scheduled for a follow-up mammogram on 10/26/2023. [facility] Medical History GERD (gastroesophageal reflux disease) Essential (primary) hypertension Osteoarthritis Generalized anxiety disorder Surgical History History of right knee joint replacement History of cataract surgery History of lumpectomy of right breast (11/17/21) H/O colonoscopy History of Oscar fundoplication History of left breast biopsy (04/28/16) History of esophagogastroduodenoscopy (EGD) S/P lumpectomy of breast (06/08/17) History of section Family History Father No problems noted. Mother No problems noted. Sister Breast cancer Daughter Diabetes mellitus Social History Household Members: Spouse and Children Housing: House Are you a primary career services director to a significant other at home: No Do you presently have visiting nurse or other home services: No Alcohol intake: never Patient Tobacco Use Status: Never used Tobacco e-Cigarette/Vaping Use: Never Used Second Hand Smoke Exposure: No service: No Current occupational status: retired Cognitive needs: No Hearing needs: No Vision needs: Yes (GLASSES) Female Reproductive History Menstrual Age of Menarche: 16 Review of Systems Const All systems reviewed & are unremarkable except as noted in HPI and below Card Denies chest pain and Denies irregular heart rhythm Resp Denies cough, Denies excessive phlegm production and Denies wheezing GI Denies abdominal pain Denies nipple discharge Musc Reports arthralgias and Reports joint swelling Skin/Breast Denies breast swelling, Denies breast skin changes, Denies breast pain, Denies breast mass, Denies change in pigmentation and Denies nipple discharge Camilo/Lymph Denies lymphadenopathy Aller/Immun Denies wheezing Physical Exam Vital Signs: Last Vital Signs Pulse 101 H 09/03/23 09:19 BP 133/67 09/03/23 09:19 BMI result Body Mass Index 28.2 Const General: no acute distress and well developed Nutritional Appearance: well nourished Orientation/consciousness: patient oriented x3 Limitations: no limitations Eyes Sclerae: sclerae normal EOM: EOMs intact bilaterally Chest Other: Left breast: Incision in the left breast is clean and intact without palpable nodules. No skin change, no nipple retraction, no nipple discharge, no palpable mass, no enlarged lymph nodes. Right breast: Incision in the right breast is clean, dry, and intact without redness or discharge. No new skin changes, no nipple retraction, no nipple discharge, no palpable mass, no enlarged lymph nodes Chest/axillae images: 1. 2. Resp Effort & Inspection: normal respiratory effort, no stridor and not tachypneic Skin Other: Warm and dry, no rash Neuro General: patient oriented x3 Extrem General: Yes no clubbing, cyanosis or edema Assessment & Plan Assessment & Plan (1) Ductal carcinoma in situ (DCIS) of left breast: Code(s): D05.12 - Intraductal carcinoma in situ of left breast Category: Medical (2) Atypical ductal hyperplasia of right breast: Code(s): N60.91 - Unspecified benign mammary dysplasia of right breast Category: Medical Plan 88-year-old female patient previous history of DCIS left breast now presenting with atypical ductal hyperplasia bordering on DCIS of the right breast noted on stereotactic guided core biopsy. Right breast lumpectomy with needle localization was performed on 11/17/2021. Pathology revealed no additional atypical hyperplasia or malignancy. The patient will continue her follow-up with Dr. Russo. Examination today reveals no suspicious findings in either breast. Her most recent mammogram of 10/23/2022 revealed no mammographic evidence of malignancy (BI-RADS 2). She has scheduled for a follow-up mammogram on 10/26/2023 at the [facility]. I recommended follow-up examination in 6 months, sooner p.r.n.. Coding Level of Care Code Est Pt Level 3 (63444) Diagnoses Ductal carcinoma in situ (DCIS) of left breast D05.12 Atypical ductal hyperplasia of right breast N60.91
[2023-09-03 09:19] VITALS: BP 133/67; PULSE 101; BMI 28.2
== END 2023-09-03 09:33 | disposition home or self-care (01) ==
PROVIDERS: PCP Internal Medicine; Visit Provider Surgery
DX: D05.12 Intraductal carcinoma in situ of left breast (principal); N60.91 Unspecified benign mammary dysplasia of right breast
CPT/HCPCS: 99213

== ENCOUNTER → 2023-09-03 09:02 | Outpatient (BNVA) | payer MEDICARE, SELFPAY | PROVIDERS: PCP Internal Medicine; Visit Provider Surgery | DX: D05.12 Intraductal carcinoma in situ of left breast (principal); N60.91 Unspecified benign mammary dysplasia of right breast | CPT/HCPCS: 99212 ==

== ENCOUNTER 2023-10-14 08:39 | Outpatient (AMB) | payer MEDICARE, SELFPAY ==
--- NOTE | 2023-10-14 08:42 | A.OFFPC_ITS ---
Vital Signs 10/14/23 08:43 Height 5 ft 2 in Weight 155 lb 8 oz BMI 28.4 BP 140/60 H Blood Pressure Location Lt brachial Position Sitting Pulse 98 Pulse Source Pulse Oximeter Pulse Oximetry (%) 96 Oxygen Delivery Method Room Air Intake Visit Reasons: 3 Month F/U Intake Note: Patient is here to follow up on HTN, OA, Hyperglycemia. Clearing Inspector Required: No Body Die Maker: Not Required per policy Accompanied by: Self / Same As Patient Allergies stephens [CHERRIES] Allergy (Severe, Verified 10/14/23 09:22) ANAPHYLAXIS apple [Apple] Allergy (Mild, Verified 10/14/23 09:22) ITCHING carrot [CARROT] Allergy (Mild, Verified 10/14/23 09:22) ITCHING shellfish derived Allergy (Mild, Verified 10/14/23 09:22) ITCHING strawberry [STRAWBERRY] Allergy (Mild, Verified 10/14/23 09:22) ITCHING watermelon Allergy (Mild, Verified 10/14/23 09:22) ITCHING pollen extracts [POLLEN] Adverse Reaction (Mild, Verified 10/14/23 09:22) COUGH,SNEEZING Medication List - Last Reconciled 10/14/23 by James Donato MD amlodipine 10 mg PO DAILY calcium carbonate-vitamin D3 600 mg-12.5 mcg (500 unit) (Calcium 600 with Vitamin D3) 2 caps PO DAILY exemestane 25 mg PO DAILY lorazepam 0.5 mg PO BEDTIME PRN meloxicam 15 mg PO DAILY omeprazole 20 mg PO DAILY valacyclovir 1,000 mg PO TID 7 days valsartan-hydrochlorothiazide 320-25 mg 1 tab PO DAILY Tobacco use date assessed: 10/14/23 Fall risk assessment: No Falls in past year Last assessed Fall Risk: 10/14/23 Dental Screening Dental Screen Date: 04/01/23 HPI 3 Month F/U HPI Details 88-year-old female presents to the [facility] to discuss her chronic medical conditions. Patient continues to have pain in the right leg, especially in the hip area. She has stopped taking the tramadol. She now takes Tylenol for the pain. Able to ambulate with a cane. Able to function and do activities of daily living. Able to drive and control finances herself. No incontinence to urine. [facility] Medical History (Updated 10/14/23 @ 09:24 by James Donato MD) Diabetes mellitus GERD (gastroesophageal reflux disease) Essential (primary) hypertension Osteoarthritis Generalized anxiety disorder Surgical History History of right knee joint replacement History of cataract surgery History of lumpectomy of right breast (11/17/21) H/O colonoscopy History of Oscar fundoplication History of left breast biopsy (04/28/16) History of esophagogastroduodenoscopy (EGD) S/P lumpectomy of breast (06/08/17) History of section Family History Father No problems noted. Mother No problems noted. Sister Breast cancer Daughter Diabetes mellitus Social History Household Members: Spouse and Children Housing: House Are you a primary urgent care to a significant other at home: No Do you presently have visiting nurse or other home services: No Alcohol intake: never Patient Tobacco Use Status: Never used Tobacco e-Cigarette/Vaping Use: Never Used Second Hand Smoke Exposure: No service: No Current occupational status: retired Cognitive needs: No Hearing needs: No Vision needs: Yes (GLASSES) Female Reproductive History Menstrual Age of Menarche: 16 Questionnaire Thrive Questionnaire Date Thrive assessed: 04/01/23 JENNIFER-7 AMB Questionnaire JENNIFER-7 Date JENNIFER - 7 assessed: 04/01/23 Source: Developed by Drs. Harinder Tovar, Berkley Lizama, Gray Jules and colleagues, with an educational kimberly from [employer]. Physical exam (Primary Care) Vital Signs: Last Vital Signs Pulse 98 10/14/23 08:43 BP 140/60 H 10/14/23 08:43 Pulse Ox 96 10/14/23 08:43 Oxygen Delivery Method Room Air 10/14/23 08:43 Care Plan Goal for BP management: Blood pressure is in range. BMI result Body Mass Index 28.4 Tobacco/Smoking Status: Tobacco use Status Tobacco use date assessed 10/14/23 10/14/23 08:51 Patient Tobacco Use Status Never used Tobacco 10/14/23 08:51 e-Cigarette/Vaping Use Never Used 10/14/23 08:51 Thrive Assessment: Date of Thrive Assessment Date Thrive assessed 04/01/23 10/14/23 08:51 Advance Care Planning discussion: Exists, not on file Date of discussion: 10/14/23 Forms completed: Health Care Proxy Time spent: 1-15 minutes, not on file Actual minutes spent: 5 Const General: cooperative and healthy appearing Nutritional Appearance: well nourished Orientation/consciousness: patient oriented x3 Limitations: no limitations HENMT Head: Yes normal to inspection Eyes General: appearance normal, both eyes and all related structures Neck Neck: Yes normal visual inspection Chest Chest palpation & inspection: normal palpation of entire chest wall Resp Effort & Inspection: normal respiratory effort Neuro General: patient oriented x3 Results AMB Hemoglobin A1c AMB Hemoglobin A1c 6.8 % Last Edit by MIGEL Reina on 10/14/23 08:57 Results Reviewed Results Reviewed: Laboratory Last Values Hgb A1c (Clinic) 6.8 % (4.0-6.0) H 10/14/23 08:42 Assessment and Plan Assessment & Plan (1) Diabetes mellitus: Code(s): E11.9 - Type 2 diabetes mellitus without complications Plan: Patient's A1c has gotten worse. Metformin 500 mg once a day has been started. (2) Bilateral primary osteoarthritis of knee: Code(s): M17.0 - Bilateral primary osteoarthritis of knee Plan: Continue conservative measures including daily Tylenol intake. Orders: Orders AMB Hemoglobin A1c Today R73.9 - Hyperglycemia, unspecified Medications: Refilled omeprazole 20 mg PO DAILY 90 caps 1RF Coding Level of Care Code Est Pt Level 4 (69755) Complex EM visit Add On G2211 Diagnoses Diabetes mellitus E11.9 Bilateral primary osteoarthritis of knee M17.0 Additional Codes Vital Signs *Quality* - Advance Care Planning discussion: Exists, not on file ([id number]) Vital Signs *Quality* - Time spent: 1-15 minutes, not on file ([id number])
[2023-10-14 08:43] VITALS: BP 140/60; PULSE 98; O2SAT 96; BMI 28.4
== END 2023-10-14 09:15 | disposition home or self-care (01) ==
PROVIDERS: PCP Internal Medicine; Visit Provider Internal Medicine
DX: E11.9 Type 2 diabetes mellitus without complications (principal); M17.0 Bilateral primary osteoarthritis of knee; R73.9 Hyperglycemia, unspecified; Z00.00 Encounter for general adult medical examination without abnormal findings
CPT/HCPCS: 1123F; 1124F; 83036; 99214; G2211

== ENCOUNTER 2023-10-26 13:51 | Outpatient (REF) | payer MEDICARE, SELFPAY ==
--- NOTE | ~2023-10-26 | MM_ITS ---
EXAMINATION: MM DIAGNOSTIC DIGITAL BREAST TOMOSYNTHESIS, BILATERAL CLINICAL INFORMATION: Postoperative 1 year follow-up (year 2) right breast 9:00 position lumpectomy for ADH bordering on LDS 11/17/2021. Patient due for bilateral screening as well. COMPARISON: Mammography: 10/23/2022, 10/21/2021, 10/22/2020, and exams dating back to 2018. TECHNIQUE: Digital breast tomosynthesis is performed in both the craniocaudal and mediolateral oblique views along with computer-aided detection (CAD). Synthesized 2D images are generated from the tomosynthesis. In addition to standard views, 2-D right magnification CC, LM, and ML views were obtained. FINDINGS: There are scattered areas of fibroglandular density (ACR BI-RADS breast composition Category b). There has been no significant interval change in the postoperative appearance of the far lateral 9:00 right breast lumpectomy region. Recommend continued surveillance. Stable postoperative scarring is present in the central and mildly lateral left breast. No change. Skin calcifications are seen in the left breast overlying scar. There are otherwise no suspicious masses, suspicious grouped calcifications, or new areas of architectural distortion in either breast. The parenchymal pattern is stable from prior exam. There is no axillary abnormality. MM/MM tomosynthesis diagnostic BI IMPRESSION: Stable benign findings bilaterally. Stable postoperative appearance on the right. Recommend continuing postop surveillance (year 3) in one year, when the patient is due for bilateral screening. ASSESSMENT: BI-RADS BI-RADS 3 - Probably benign finding(s) - 12 month follow-up suggested RECOMMENDATION: 12 month diagnostic follow up Results were provided to the patient at time of visit by the technologist. This patient's information was entered into a reminder system with a target due date for their next mammogram.
== END 2023-10-26 13:52 | disposition home or self-care (01) ==
LOC: HO.MAMMO 13:51
PROVIDERS: PCP Internal Medicine; Visit Provider Surgery
DX: D05.12 Intraductal carcinoma in situ of left breast (principal)
CPT/HCPCS: 77062; 77066

== ENCOUNTER → 2023-10-26 14:00 | Outpatient (BNV) | payer MEDICARE, SELFPAY | PROVIDERS: PCP Internal Medicine; Visit Provider Radiology Diagnostic Radiology | DX: Z85.3 Personal history of malignant neoplasm of breast (principal) | CPT/HCPCS: 77066; G0279 ==

== ENCOUNTER 2024-01-25 13:49 | Outpatient (AMB) | payer MEDICARE, SELFPAY ==
--- NOTE | 2024-01-25 14:06 | MHC.PC.OV ---
Vital Signs 01/25/24 14:08 Height 5 ft 2 in Weight 159 lb 2 oz BMI 29.1 BP 110/60 Blood Pressure Location Lt brachial Position Sitting Pulse 101 H Pulse Source Pulse Oximeter Pulse Oximetry (%) 97 Oxygen Delivery Method Room Air Intake Visit Reasons: 3 month f/u Intake Note: Patient is here to follow up on DM, HTN, OA. Lead Military Analyst Required: No Vice President Of Manufacturing: Not Required per policy Accompanied by: Self / Same As Patient Allergies stephens [CHERRIES] Allergy (Severe, Verified 01/25/24 14:08) ANAPHYLAXIS apple [Apple] Allergy (Mild, Verified 01/25/24 14:08) ITCHING carrot [CARROT] Allergy (Mild, Verified 01/25/24 14:08) ITCHING shellfish derived Allergy (Mild, Verified 01/25/24 14:08) ITCHING strawberry [STRAWBERRY] Allergy (Mild, Verified 01/25/24 14:08) ITCHING watermelon Allergy (Mild, Verified 01/25/24 14:08) ITCHING pollen extracts [POLLEN] Adverse Reaction (Mild, Verified 01/25/24 14:08) COUGH,SNEEZING Tobacco use date assessed: 01/25/24 Fall risk assessment: No Falls in past year Last assessed Fall Risk: 01/25/24 Dental Screening Dental Screen Date: 04/01/23 HPI 3 month f/u HPI Details 88-year-old female presents to the office to discuss her chronic medical conditions. In the last office visit, I had started her on metformin for diabetes. However patient never started the medication and decided against using it. Compliant with other medications and reporting no side effects. Controlling the pain in her hands and legs, which is due to osteoarthritis, with Tylenol and occasional meloxicam. Able to function and do all activities of daily living. [facility] Medical History Diabetes mellitus GERD (gastroesophageal reflux disease) Essential (primary) hypertension Osteoarthritis Generalized anxiety disorder Surgical History History of right knee joint replacement History of cataract surgery History of lumpectomy of right breast (11/17/21) H/O colonoscopy History of Oscar fundoplication History of left breast biopsy (04/28/16) History of esophagogastroduodenoscopy (EGD) S/P lumpectomy of breast (06/08/17) History of section Family History Father No problems noted. Mother No problems noted. Sister Breast cancer Daughter Diabetes mellitus Social History Household Members: Spouse and Children Housing: House Are you a primary day care teacher to a significant other at home: No Do you presently have visiting nurse or other home services: No Alcohol intake: never Patient Tobacco Use Status: Never used Tobacco e-Cigarette/Vaping Use: Never Used Second Hand Smoke Exposure: No service: No Current occupational status: retired Cognitive needs: No Hearing needs: No Vision needs: Yes (GLASSES) Female Reproductive History Menstrual Age of Menarche: 16 Questionnaire Thrive Questionnaire Date Thrive assessed: 04/01/23 JENINFER-7 AMB Questionnaire JENNIFER-7 Date JENNIFER - 7 assessed: 04/01/23 Source: Developed by Drs. Harinder Tovar, Berkley Lizama, Gray Jules and colleagues, with an educational kimberly from [employer]. Physical exam (Primary Care) Vital Signs: Last Vital Signs Pulse 101 H 01/25/24 14:08 BP 110/60 01/25/24 14:08 Pulse Ox 97 01/25/24 14:08 Oxygen Delivery Method Room Air 01/25/24 14:08 BMI result Body Mass Index 29.1 Tobacco/Smoking Status: Tobacco use Status Tobacco use date assessed 01/25/24 01/25/24 14:15 Patient Tobacco Use Status Never used Tobacco 01/25/24 14:15 e-Cigarette/Vaping Use Never Used 01/25/24 14:15 Thrive Assessment: Date of Thrive Assessment Date Thrive assessed 04/01/23 01/25/24 14:15 Const General: cooperative and healthy appearing Nutritional Appearance: well nourished Orientation/consciousness: patient oriented x3 Limitations: no limitations HENMT Head: Yes normal to inspection Eyes General: appearance normal, both eyes and all related structures Neck Neck: Yes normal visual inspection Chest Chest palpation & inspection: normal palpation of entire chest wall Resp Effort & Inspection: normal respiratory effort Neuro General: patient oriented x3 Results AMB Hemoglobin A1c AMB Hemoglobin A1c 6.5 % Last Edit by MIGEL Reina on 01/25/24 14:18 Results Reviewed Results Reviewed: Laboratory Last Values Hgb A1c (Clinic) 6.5 % (4.0-6.0) H 01/25/24 14:06 Coding Level of Care Code Est Pt Level 4 (66657) Complex EM visit Add On G2211 Diagnoses Essential (primary) hypertension I10 Diabetes mellitus E11.9 Assessment & Plan Assessment & Plan (1) Essential (primary) hypertension: Code(s): I10 - Essential (primary) hypertension Category: Medical Plan: Blood pressure is stable. Continue current medications. (2) Diabetes mellitus: Code(s): E11.9 - Type 2 diabetes mellitus without complications Category: Medical Plan: A1c has slightly improved, despite patient being on no medications. Metformin which was never started has been removed from the list of prescriptions. Orders: Orders AMB Hemoglobin A1c 01/25/24 E11.9 - Type 2 diabetes mellitus without complications Medications: Refilled lorazepam 0.5 mg PO BEDTIME PRN 20 tabs 1RF anxiety meloxicam 15 mg PO DAILY 90 tabs 1RF omeprazole 20 mg PO DAILY 90 caps 1RF Discontinued metformin Discontinued Reason: Patient Refused 500 mg PO DAILY 90 tabs 0RF
[2024-01-25 14:08] VITALS: BP 110/60; PULSE 101; O2SAT 97; BMI 29.1
== END 2024-01-25 14:36 | disposition home or self-care (01) ==
LOC: HO.HMCH 13:50
PROVIDERS: PCP Internal Medicine; Visit Provider Internal Medicine
DX: I10 Essential (primary) hypertension (principal); E11.9 Type 2 diabetes mellitus without complications

== ENCOUNTER → 2024-01-25 13:49 | Outpatient (BNVA) | payer MEDICARE, SELFPAY | PROVIDERS: PCP Internal Medicine; Visit Provider Internal Medicine | DX: I10 Essential (primary) hypertension (principal); E11.9 Type 2 diabetes mellitus without complications | CPT/HCPCS: 83036; 99212 ==

== ENCOUNTER 2024-02-29 10:55 | Outpatient (AMB) | payer MEDICARE, SELFPAY ==
[2024-02-29 10:50] VITALS: BP 157/72; PULSE 122; BMI 29.0
--- NOTE | 2024-02-29 10:50 | A.OFFVIS_ITS ---
Vital Signs 3 02/29/24 10:50 Height 5 ft 2 in Weight 158 lb 8 oz BMI 29.0 BP 157/72 H Blood Pressure Location Lt brachial Position Sitting Pulse 122 H Intake Visit Reasons: 6 month follow up breast exam Intake Note: Patient is seen in office for 6 month follow up visit, breast exam. Pt c/o: has a red juancho on the upper right breast for the past 2 wks, itchy, unsure if its due to allergies, allergic to apples and had some during that time, would like to have it checked, denies any other concerns mm: 10/26/23 Karan:11/15/23 Curing Oven Attendant Required: No Collar Baster Jumpbasting: Collar Baster Jumpbasting Present Accompanied by: Self / Same As Patient Allergies stephens [CHERRIES] Allergy (Severe, Verified 02/29/24 10:59) ANAPHYLAXIS apple [Apple] Allergy (Mild, Verified 02/29/24 10:59) ITCHING carrot [CARROT] Allergy (Mild, Verified 02/29/24 10:59) ITCHING shellfish derived Allergy (Mild, Verified 02/29/24 10:59) ITCHING strawberry [STRAWBERRY] Allergy (Mild, Verified 02/29/24 10:59) ITCHING watermelon Allergy (Mild, Verified 02/29/24 10:59) ITCHING pollen extracts [POLLEN] Adverse Reaction (Mild, Verified 02/29/24 10:59) COUGH,SNEEZING HPI Comments Details: 88-year-old female patient returning for follow-up breast examination. A mammogram dated 10/21/2021 revealed increased calcifications in the right breast not clearly vascular. These were felt to be high suspicion for malignancy and biopsy was recommended (BI-RADS 4). She subsequently underwent a right breast stereotactic guided biopsy at the [facility] on 10/29/2021. 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 A lumpectomy with needle localization was performed on 11/17/2021 to assure complete removal. No further atypical ductal hyperplasia or malignancy was identified. 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 After undergoing a lumpectomy she underwent evaluation by Radiation Oncology. The decision was made to avoid radiation therapy. She was started on tamoxifen for 5 years ( Dr. Russo). She feels well but does complain right knee pain after a knee replacement approximately 2 months ago. She continues with physical therapy for the right knee. Her most recent mammogram dated 10/26/2023 revealed postoperative changes but no mammographic evidence of malignancy (BI-RADS 3). Diagnostic mammography is recommended in 1 year). She reports a red juancho in her left breast after eating apples which she has an allergy to. [facility] Medical History Diabetes mellitus GERD (gastroesophageal reflux disease) Essential (primary) hypertension Osteoarthritis Generalized anxiety disorder Surgical History History of right knee joint replacement History of cataract surgery History of lumpectomy of right breast (11/17/21) H/O colonoscopy History of Oscar fundoplication History of left breast biopsy (04/28/16) History of esophagogastroduodenoscopy (EGD) S/P lumpectomy of breast (06/08/17) History of section Family History Father No problems noted. Mother No problems noted. Sister Breast cancer Daughter Diabetes mellitus Social History Household Members: Spouse and Children Housing: House Are you a primary intensive care anaesthetist to a significant other at home: No Do you presently have visiting nurse or other home services: No Alcohol intake: never Patient Tobacco Use Status: Never used Tobacco e-Cigarette/Vaping Use: Never Used Second Hand Smoke Exposure: No service: No Current occupational status: retired Cognitive needs: No Hearing needs: No Vision needs: Yes (GLASSES) Female Reproductive History Menstrual Age of Menarche: 16 Review of Systems Const All systems reviewed & are unremarkable except as noted in HPI and below Card Denies chest pain and Denies irregular heart rhythm Resp Denies cough, Denies excessive phlegm production and Denies wheezing GI Denies abdominal pain Denies nipple discharge Musc Reports arthralgias and Reports joint swelling Skin/Breast Details: Change in skin right breast upper inner quadrant Denies breast swelling, Denies breast skin changes, Denies breast pain, Denies breast mass and Denies nipple discharge Camilo/Lymph Denies lymphadenopathy Aller/Immun Denies wheezing Physical Exam Vital Signs: Last Vital Signs Pulse 122 H 02/29/24 10:50 BP 157/72 H 02/29/24 10:50 BMI result Body Mass Index 29.0 Const General: no acute distress and well developed Nutritional Appearance: well nourished Orientation/consciousness: patient oriented x3 Limitations: no limitations Eyes Sclerae: sclerae normal EOM: EOMs intact bilaterally Chest Other: Left breast: Incision in the left breast is clean and intact without palpable nodules. No skin change, no nipple retraction, no nipple discharge, no palpable mass, no enlarged lymph nodes. Right breast: Incision in the right breast is clean, dry, and intact without redness or discharge. New skin changes noted below, no nipple retraction, no nipple discharge, no palpable mass, no enlarged lymph nodes Chest/axillae images: 2 1. 12 mm round, red skin irritation, question of a allergic reaction to eating apples. No underlying mass appreciated. No orange skin deformities. Resp Effort & Inspection: normal respiratory effort, no stridor and not tachypneic Skin Other: Warm and dry, no rash Neuro General: patient oriented x3 Extrem General: Yes no clubbing, cyanosis or edema Assessment & Plan Assessment & Plan (1) Ductal carcinoma in situ (DCIS) of left breast: Code(s): D05.12 - Intraductal carcinoma in situ of left breast Category: Medical (2) Atypical ductal hyperplasia of right breast: Code(s): N60.91 - Unspecified benign mammary dysplasia of right breast Category: Medical Plan 88-year-old female patient previous history of DCIS left breast now presenting with atypical ductal hyperplasia bordering on DCIS of the right breast noted on stereotactic guided core biopsy. Right breast lumpectomy with needle localization was performed on 11/17/2021. Pathology revealed no additional atypical hyperplasia or malignancy. The patient will continue her follow-up with Dr. Russo. Examination today reveals no suspicious findings in either breast. Her most recent mammogram of 10/26/2023 revealed postoperative changes with no mammographic evidence of malignancy (BI-RADS 3). Diagnostic mammography is recommended in 1 year. There is 1 small skin lesion measuring approximately 12 mm in the upper inner quadrant away from the biopsy site suggestive of an allergic reaction. I have recommended applying hydrocortisone ointment twice daily for approximately 2 weeks. She will be away for 1 month on vacation. If the lesion is still present after one-month she should call for follow-up visit otherwise return in 6 months for routine visit. Revealed no mammographic evidence of malignancy (BI-RADS 2). She has scheduled for a follow-up mammogram on 10[facility]/20[facility]. I recommended follow-up examination in 6 months, sooner p.r.n.. Medications: New 2 hydrocortisone 2.5% 1 appl topical BID 2 weeks 20 grams 0RF R21 - Rash and other nonspecific skin eruption Coding Level of Care Code Est Pt Level 3 (33863) Diagnoses Ductal carcinoma in situ (DCIS) of left breast D05.12 Atypical ductal hyperplasia of right breast N60.91
== END 2024-02-29 11:22 | disposition home or self-care (01) ==
PROVIDERS: PCP Internal Medicine; Visit Provider Surgery
DX: D05.12 Intraductal carcinoma in situ of left breast (principal); N60.91 Unspecified benign mammary dysplasia of right breast
CPT/HCPCS: 99213

== ENCOUNTER → 2024-02-29 10:55 | Outpatient (BNVA) | payer MEDICARE, SELFPAY | PROVIDERS: PCP Internal Medicine; Visit Provider Surgery | DX: N60.91 Unspecified benign mammary dysplasia of right breast (principal); D05.12 Intraductal carcinoma in situ of left breast; Z90.12 Acquired absence of left breast and nipple; Z92.3 Personal history of irradiation | CPT/HCPCS: 99212 ==

== ENCOUNTER 2024-05-23 10:33 | Outpatient (AMB) | payer MEDICARE, SELFPAY ==
--- NOTE | 2024-05-23 11:05 | MHC.OFFWIV ---
Intake Vital Signs 05/23/24 11:08 Weight 159 lb BP 140/80 H Blood Pressure Location Lt brachial Position Sitting Pulse 109 H Pulse Source Pulse Oximeter Pulse Oximetry (%) 98 Oxygen Delivery Method Room Air Intake Visit Reasons: EP-body itching/rash Intake Note: Patient here for rash on back that has been present for almost 2 weeks. Patient Tobacco Use Status: Never used Tobacco Allergies stephens [CHERRIES] Allergy (Severe, Verified 05/23/24 11:09) ANAPHYLAXIS apple [Apple] Allergy (Mild, Verified 05/23/24 11:09) ITCHING carrot [CARROT] Allergy (Mild, Verified 05/23/24 11:09) ITCHING shellfish derived Allergy (Mild, Verified 05/23/24 11:09) ITCHING strawberry [STRAWBERRY] Allergy (Mild, Verified 05/23/24 11:09) ITCHING watermelon Allergy (Mild, Verified 05/23/24 11:09) ITCHING pollen extracts [POLLEN] Adverse Reaction (Mild, Verified 05/23/24 11:09) COUGH,SNEEZING Do you need a note to return to daycare/school/sports/work: No HPI HPI Comments History of Present Illness Details History of Present Illness - The patient is an 89-year-old female presenting with pruritus and burning sensation on her back. - Symptoms have been present for approximately two weeks, initially starting gradually. - She has been using Benadryl, which provides symptomatic relief for pain but not for the rash's recurrence. - The itching and burning primarily affect the back, abdomen, and thigh, with irregular brown lesions noted in these areas. - There is a past history of Herpes Zoster - The patient reports no recent changes in detergents or soaps and has known food allergies, although no exposure has occurred recently. 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 Physical Exam General: Cooperative, healthy appearing, comfortable, no acute distress and well developed Orientation: Patient oriented x3 Limitations: No limitations Head: Normal to inspection Ears: Hearing grossly normal bilaterally Nose: Normal external nose present Face and sinus: Normal facial exam Eyes: Appearance normal, both eyes and all related structures Neck: Normal visual inspection and Yes full ROM Respiratory: Normal respiratory effort and able to speak in complete sentences. Skin: 10-12 sporadically placed brown, small/0.25cm lesions noted on back, right breast; larger 2cm round brown area on right lateral knee, no signs of infection noted Neuro: Patient oriented x3 Extremities: Normal to inspection [facility] Medical History Diabetes mellitus GERD (gastroesophageal reflux disease) Essential (primary) hypertension Osteoarthritis Generalized anxiety disorder Surgical History History of right knee joint replacement History of cataract surgery History of lumpectomy of right breast (11/17/21) H/O colonoscopy History of Oscar fundoplication History of left breast biopsy (04/28/16) History of esophagogastroduodenoscopy (EGD) S/P lumpectomy of breast (06/08/17) History of section Family History Father No problems noted. Mother No problems noted. Sister Breast cancer Daughter Diabetes mellitus Social History Household Members: Spouse and Children Housing: House Are you a primary care transition manager to a significant other at home: No Do you presently have visiting nurse or other home services: No Alcohol intake: never Patient Tobacco Use Status: Never used Tobacco e-Cigarette/Vaping Use: Never Used Second Hand Smoke Exposure: No service: No Current occupational status: retired Cognitive needs: No Hearing needs: No Vision needs: Yes (GLASSES) Female Reproductive History Menstrual Age of Menarche: 16 Review of Systems Const All systems reviewed & are unremarkable except as noted in HPI and below Physical Exam Vital Signs: Last Vital Signs Pulse 109 H 05/23/24 11:08 BP 140/80 H 05/23/24 11:08 Pulse Ox 98 05/23/24 11:08 Oxygen Delivery Method Room Air 05/23/24 11:08 Assessment & Plan Assessment & Plan (1) Rash: Code(s): R21 - Rash and other nonspecific skin eruption Plan The patient has several atypical pruritic lesions; I will prescribe prednisone 20 mg daily for five days to manage inflammation, and hydroxyzine 10 mg at night, adjustable to 20 mg, for itching relief. Due to the uncharacteristic nature of the symptoms and persistent history, a dermatology referral is arranged for further evaluation. The patient is advised to maintain her scheduled appointment with her PCP while also starting the prescribed medications immediately. Necessary prescriptions and referral information will be provided with precise instructions for follow-up. Patient was informed and verbally consented to the use of an ambient scribe for clinic note documentation during this visit. Orders: Referrals Dermatology Referral R21 - Rash and other nonspecific skin eruption Medications: New prednisone 20 mg PO DAILY 5 tabs 0RF hydroxyzine HCl 10 mg PO Q6-8H 14 tabs 0RF Coding Level of Care Code Est Pt Level 4 (34282) Diagnoses Rash R21
[2024-05-23 11:08] VITALS: BP 140/80; PULSE 109; O2SAT 98
--- OUTSIDE RECORDS SUMMARY | 2024-05-23 12:49 | XMS_ITS | Clinical Summary ---
Author Organization Formerly [facility] Address [address] [place] [address] Care Team Providers Care Graphics Intern Name Role Phone Unavailable Primary Care Provider Unavailabl e Social History Tobacco Use Types Packs/Day Years Used Date Smoking Tobacco: Never Assessed Sex and Gender Information Value Date Recorded Sex Assigned at Not on file Gender Identity Not on file Sexual Orientation Not on file Plan of Treatment Health Maintenance Due Date Last Done Comments DTaP/Tdap/Td Vaccines (1 - Tdap) 1954 Pneumococcal Vaccines 50+ (1 of 1 - PCV) 05/23/1987 Zoster (Shingles) Vaccine (1 of 2) 05/23/1987 RSV Vaccine 60 years and old er and Patients (1 - 1-dose 75+ series) 2012 COVID-19 Vaccine ( - 2023-2 5 season) 2023 Hepatitis B Vaccines Aged Out No long er eligible based on patient's age to complete this topic
--- OUTSIDE RECORDS SUMMARY | 2024-05-23 12:49 | XMS_ITS | Encounter Summary ---
Author Organization [facility] Address [address] [place] [address] Care Team Providers Care Mh Teacher Name Role Phone Unavailable Primary Care Provider Unavailabl e Encounter Details Date Type Department Care Team (Late st Contact Info) Description 07/06/2023 Scanned Document [facility] ORTHO SURGERY SCAN Orthopedic Surgery, Scan Social History Tobacco Use Types Packs/Day Years Used Date Smoking Tobacco: Never Assessed Sex and Gender Information Value Date Recorded Sex Assigned at Not on file Gender Identity Not on file Sexual Orientation Not on file documented as of this encounter Plan of Treatment Not on file documented as of this encounter Visit Diagnoses Not on filedocumented in this encounter
--- OUTSIDE RECORDS SUMMARY | 2024-05-23 12:49 | XMS_ITS | Clinical Summary ---
Author Organization [email or web address] Address [address] [facility] [address] [place] [address] Care Team Providers Care Case Specialist Name Role Phone Unavailable Primary Care Provider Unavailabl e Immunizations Name Administration Dates Next Due Influenza, seasonal, injectable, preservative fr ee 12/08/2023 Pfizer Covid-19 Vaccine 12+ 12/08/2023 Social History Tobacco Use Types Packs/Day Years Used Date Smoking Tobacco: Never Assessed Comments Unknown Sex and Gender Information Value Date Recorded Sex Assigned at Female 01/19/2022 10:34 AM EDT Legal Sex Female 10:34 AM EDT Gender Identity Female 12/08/2023 3:21 PM EDT Sexual Orientation Straight 12/08/2023 3: 21 PM EDT Plan of Treatment Health Maintenance Due Date Last Done Comments Depression Screening 1937 Lipid Panel 1937 SDOH Screening 1937 Alcohol/Substance Use Screening 1949 Tobacco Screening 1947 Zoster Vaccines (1 of 2) 05/23/1987 RSV Patients and Patients Aged 60 years or older (1 - 1-dose 75+ series) 2012 DTaP/Tdap/Td Vaccines (1 - Tdap) 12/07/2018 12/06/2018 Pneumococcal Vaccine: 50+ Years Completed 12/06/2018, 01/08/2016 COVID-19 Vaccine Completed 12/08/2023, , 08/12/2021, Additional history exists Influenza Vaccine Completed 12/08/2023, , 03/05/2022, Additional history exists HIB Vaccines Aged Out No longer eligi ble based on patient's age to complete this topic HPV Vaccines Aged Out No longer eligi ble based on patient's age to complete this topic Hepatitis A Vaccines Aged Out No long er eligible based on patient's age to complete this topic Hepatitis B Vaccines Aged Out No long er eligible based on patient's age to complete this topic IPV Vaccines Aged Out No longer eligi ble based on patient's age to complete this topic Meningococcal Vaccine Aged Out No ryan shelly eligible based on patient's age to complete this topic RSV under 20 months Aged Out No longe r eligible based on patient's age to complete this topic Rotavirus Vaccines Aged Out No longer eligible based on patient's age to complete this topic Insurance MEDICARE [facility] [place] [id number]
== END 2024-05-23 11:31 | disposition home or self-care (01) ==
PROVIDERS: PCP Internal Medicine; Visit Provider Physician Assistant
DX: R21 Rash and other nonspecific skin eruption (principal)

== ENCOUNTER → 2024-05-23 10:33 | Outpatient (BNVA) | payer MEDICARE, SELFPAY | PROVIDERS: PCP Internal Medicine; Visit Provider Physician Assistant | DX: R21 Rash and other nonspecific skin eruption (principal) | CPT/HCPCS: 99212 ==

== ENCOUNTER 2024-06-15 14:14 | Outpatient (AMB) | payer MEDICARE, SELFPAY ==
--- NOTE | 2024-06-15 14:31 | MHC.PC.OV ---
Vital Signs 06/15/24 14:34 Height 5 ft 2 in Weight 159 lb 2 oz BMI 29.1 BP 130/68 Blood Pressure Location Lt brachial Position Sitting Pulse 107 H Pulse Source Pulse Oximeter Temp 97.3 F Temp Source Temporal Artery Scan Pulse Oximetry (%) 97 Oxygen Delivery Method Room Air Intake Visit Reasons: 3mth f/u Intake Note: Patient is here to follow up on DM, HTN, OA. Credit Collector Required: No [employer] Senior Officer: Not Required per policy Accompanied by: Self / Same As Patient Allergies stephens [CHERRIES] Allergy (Severe, Verified 06/15/24 14:33) ANAPHYLAXIS apple [Apple] Allergy (Mild, Verified 06/15/24 14:33) ITCHING carrot [CARROT] Allergy (Mild, Verified 06/15/24 14:33) ITCHING shellfish derived Allergy (Mild, Verified 06/15/24 14:33) ITCHING strawberry [STRAWBERRY] Allergy (Mild, Verified 06/15/24 14:33) ITCHING watermelon Allergy (Mild, Verified 06/15/24 14:33) ITCHING pollen extracts [POLLEN] Adverse Reaction (Mild, Verified 06/15/24 14:33) COUGH,SNEEZING Tobacco use date assessed: 06/15/24 Fall risk assessment: No Falls in past year Last assessed Fall Risk: 06/15/24 Dental Screening Dental Screen Date: 06/15/24 Did you have a dental visit in the last 12 months?: Yes Did you have a dental problem in the last 6 months where you did not have access to dental care?: No Was dental information given to patient?: Patient has dentist [facility] Medical History Diabetes mellitus GERD (gastroesophageal reflux disease) Essential (primary) hypertension Osteoarthritis Generalized anxiety disorder Surgical History History of right knee joint replacement History of cataract surgery History of lumpectomy of right breast (11/17/21) H/O colonoscopy History of Oscar fundoplication History of left breast biopsy (04/28/16) History of esophagogastroduodenoscopy (EGD) S/P lumpectomy of breast (06/08/17) History of section Family History Father No problems noted. Mother No problems noted. Sister Breast cancer Daughter Diabetes mellitus Social History Household Members: Spouse and Children Housing: House Are you a primary childcare director to a significant other at home: No Do you presently have visiting nurse or other home services: No Alcohol intake: never Patient Tobacco Use Status: Never used Tobacco e-Cigarette/Vaping Use: Never Used Second Hand Smoke Exposure: No service: No Current occupational status: retired Cognitive needs: No Hearing needs: No Vision needs: Yes (GLASSES) Female Reproductive History Menstrual Age of Menarche: 16 Questionnaire PHQ-9 Over the last 2 weeks, how often have you been bothered by any of the following problems? 1. Little interest or pleasure in doing things: not at all 2. Feeling down, depressed, or hopeless: not at all 3. Trouble falling or staying asleep, or sleeping too much: not at all 4. Feeling tired or having little energy: not at all 5. Poor appetite or overeating: not at all 6. Feeling bad about yourself - or that you are a failure or have let yourself or your family down: not at all 7. Trouble concentrating on things, such as reading the newspaper or watching television: not at all 8. Moving or speaking so slowly that other people could have noticed. Or the opposite - being so fidgety or restless that you have been moving around a lot more than usual: not at all 9. Thoughts that you would be better off or of hurting yourself in some way: not at all Total score: 0 Depression Screening Interpretation: Negative Depression Screening Done: Yes Source: Developed by Drs. Harinder Tovar, Berkley Lizama, Gray Jules and colleagues, with an educational kimberly from [employer]. Thrive Questionnaire Date Thrive assessed: 06/15/24 I am a: Patient What is your living situation today?: I have a steady place to live Within the past 12 months, did the food you bought not last and you didn't have the money to get more?: Never true Within the past 12 months, did you worry whether your food would run out before you got money to buy more?: Never true Do you have trouble paying for medicines?: No Do you have trouble getting transportation to medical appointments?: No Do you have trouble paying your heating and electricity bill?: No Do you have trouble taking care of your child, family member or friend?: No Do you have trouble with day-to-day activities such as bathing, preparing meals, shopping, managing finances, etc.?: No Are you currently unemployed and looking for a job?: No Are you interested in more education?: No Please select the resources that you would like help with: None Currently or been in a relationship where the following occur: No concerns reported THRIVE Score: 0 AUDIT C Alcohol Use Questionnaire (AUDIT-C) 1. How often do you have a drink containing alcohol?: Never Total Score: 0 JENNIFER-7 AMB Questionnaire JENNIFER-7 Date JENNIFER - 7 assessed: 06/15/24 Feeling nervous, anxious, or on edge: 0 = Not at all Not being able to stop or control worryin = Not at all Worrying too much about different things: 0 = Not at all Trouble relaxin = Not at all Being so restless that it is hard to sit still: 0 = Not at all Becoming easily annoyed or irritable: 0 = Not at all Feeling afraid as if something awful might happen: 0 = Not at all Total JENNIFER-7 score (0-4 normal; 5-9 mild; 10-14 moderate; 15-21 severe): 0 Source: Developed by Drs. Harinder Tovar, Berkley Lizama, Gray Jules and colleagues, with an educational kimberly from [employer]. Physical exam (Primary Care) Vital Signs: Last Vital Signs Temp 97.3 F 06/15/24 14:34 Pulse 107 H 06/15/24 14:34 BP 130/68 06/15/24 14:34 Pulse Ox 97 06/15/24 14:34 Oxygen Delivery Method Room Air 06/15/24 14:34 BMI result Body Mass Index 29.1 Tobacco/Smoking Status: Tobacco use Status Tobacco use date assessed 06/15/24 06/15/24 14:34 Patient Tobacco Use Status Never used Tobacco 06/15/24 14:32 e-Cigarette/Vaping Use Never Used 06/15/24 14:32 PHQ-9: PHQ-9 Score PHQ-9: Total score 0 06/15/24 14:32 Depression Screening Interpretation: Negative Thrive Assessment: Date of Thrive Assessment Date Thrive assessed 06/15/24 06/15/24 14:32 Currently or been in a relationship where the following occur: No concerns reported Results AMB Hemoglobin A1c AMB Hemoglobin A1c 6.2 % Last Edit by MIGEL Reina on 06/15/24 14:47 Results Reviewed Results Reviewed: Laboratory Last Values Hgb A1c (Clinic) 6.2 % (4.0-6.0) H 06/15/24 14:33 Coding Level of Care Code Est Pt Level 4 (33346) Complex EM visit Add On G2211 Diagnoses Diabetes mellitus E11.9 Rash R21 Assessment & Plan Assessment & Plan (1) Diabetes mellitus: Code(s): E11.9 - Type 2 diabetes mellitus without complications Category: Medical Plan: Patient is prediabetic. 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 Topical steroid cream prescribed Plan History of Present Illness The patient is an 89-year-old female presenting with itching and rash on her skin. She experiences the itch predominantly on the back, side, leg, and right breast, accompanied by bumps. These symptoms began a few months ago and have recently intensified. Initial treatment with prednisone has been ineffective, and past prescriptions including cortisone partially alleviated symptoms. The patient is concerned about potential organ involvement but denies experiencing respiratory distress or fatigue. A known heart murmur from prior evaluations is noted, with recent blood work being stable bar a new indication of prediabetes. Social History - Continues to drive short distances to maintain activity and avoid feelings of confinement - Lives independently and manages her daily activities Review of Systems - Skin: Reports intense itching with rash (described as bumps and small spots) - Cardiovascular: Denies any new symptoms despite known heart murmur - Respiratory: Denies shortness of breath or fatigue Physical Exam General: Cooperative and healthy appearing Nutritional Appearance: Well nourished Orientation/consciousness: Patient oriented x3 Limitations: No limitations Head: Normal to inspection General: Appearance normal, both eyes and all related structures Neck: Normal visual inspection Chest: Normal palpation of entire chest wall Respiratory: Normal respiratory effort Neurology: Patient oriented x3 Results - Labs: Recent blood work stable, noted prediabetic status Plan The patient is experiencing xerotic eczema, prompting treatment with a stronger topical cream to address persistent rash and itching. Despite her worries about organ-related issues, symptoms remain confined to the skin, with a recent prediabetic status managed through lifestyle modifications. The previous heart murmur condition remains stable, ensuring no additional interventions are needed at this time. A follow-up plan includes ongoing monitoring for changes in skin condition and routine blood work evaluations. Patient was informed and verbally consented to the use of an ambient scribe for clinic note documentation during this visit. Discussion Notes During the consultation, I discussed the current assessment of xerotic eczema, explaining that despite previous ineffectual treatments, a stronger topical cream is likely to provide relief. I addressed potential concerns regarding broader health implications, confirming localized symptoms consistent with eczema. The treatment rationale considers the safety profile rather than systemic therapy due to no evidence of internal involvement. I emphasized consistent cream application and reiterated the importance of follow-up visits to evaluate treatment efficacy and monitor her heart murmur and metabolic status. Patient Instructions - Apply the prescribed cream twice daily on affected areas for one week. - Schedule a return visit for evaluation after a week of treatment. - Continue monitoring skin for any changes or spread of rash. - Maintain dietary and lifestyle habits to address prediabetic status. - Contact clinic if severe symptoms persist or worsen. Orders: Orders AMB Hemoglobin A1c Today E11.9 - Type 2 diabetes mellitus without complications Basic Metabolic Panel Today E11.9 - Type 2 diabetes mellitus without complications Complete Blood Count no Diff Today E11.9 - Type 2 diabetes mellitus without complications Liver Panel Today E11.9 - Type 2 diabetes mellitus without complications Thyroid Stimulating Hormone Today E11.9 - Type 2 diabetes mellitus without complications UA and rflx microscopic Today E11.9 - Type 2 diabetes mellitus without complications Medications: New triamcinolone acetonide 0.025% 1 appl topical BID 15 grams 0RF Refilled amlodipine 10 mg PO DAILY 90 tabs 1RF
[2024-06-15 14:34] VITALS: BP 130/68; PULSE 107; TEMP 36.3; O2SAT 97; BMI 29.1
--- OUTSIDE RECORDS SUMMARY | 2024-06-15 17:57 | XMS_ITS ---
Author Name [facility] Organization Unknown Care Team Organization Name Specialty Phone Email Start Date End [facility] 07/06/2023
--- OUTSIDE RECORDS SUMMARY | 2024-06-15 17:57 | XMS_ITS | Encounter Summary ---
Author Organization [facility] Address [address] [place] [address] Care Team Providers Care Director Of Recruitment And Admissions Name Role Phone Unavailable Primary Care Provider Unavailabl e Encounter Details Date Type Department Care Team (Late st Contact Info) Description 07/06/2023 Scanned Document [facility] ORTHO SURGERY SCAN Orthopedic Surgery, Scan [...]
--- OUTSIDE RECORDS SUMMARY | 2024-06-15 17:57 | XMS_ITS | Clinical Summary ---
Author Organization [employer] Address [address] [facility] [address] [place] [address] Care Team Providers Care Office Assistance Name Role Phone Unavailable Primary Care Provider [...] age to complete this topic Insurance MEDICARE [facility] [place] [id number]
--- OUTSIDE RECORDS SUMMARY | 2024-06-15 17:57 | XMS_ITS | Clinical Summary ---
Author Organization Formerly [facility] Address [address] [place] [address] Care Team Providers Care Clothes Model Name Role Phone Unavailable Primary Care Provider [...]
== END 2024-06-15 15:12 | disposition home or self-care (01) ==
LOC: HO.HMCH 14:15
PROVIDERS: PCP Internal Medicine; Visit Provider Internal Medicine
DX: E11.9 Type 2 diabetes mellitus without complications (principal); R21 Rash and other nonspecific skin eruption

== ENCOUNTER → 2024-06-15 14:14 | Outpatient (BNVA) | payer MEDICARE, SELFPAY | PROVIDERS: PCP Internal Medicine; Visit Provider Internal Medicine | DX: E11.9 Type 2 diabetes mellitus without complications (principal); R21 Rash and other nonspecific skin eruption | CPT/HCPCS: 83036; 99212 ==

== ENCOUNTER 2024-06-23 09:03 | Outpatient (REF) | payer MEDICARE, SELFPAY ==
[2024-06-23 09:39] LABS: Hemoglobin 12.9 g/dl (12.0-16.0); Mean Corpuscular HGB Conc 33.1 g/dl (31.0-35.0); Mean Corpuscular Hemoglobin 28.5 pg (27.0-33.0); Mean Corpuscular Volume 86.3 fL (80.0-98.0); Mean Platelet Volume 10.6 fL (9.4-12.3); Platelet Count 268 X10*3/uL (160-400); Red Blood Count 4.52 X10*6/uL (4.20-5.50); Red Cell Distribution Width 12.9 % (11.0-16.0); White Blood Count 6.1 X10*3/uL (4.8-10.8)
--- OUTSIDE RECORDS SUMMARY | 2024-06-23 09:45 | XMS_ITS | Clinical Summary ---
Author Organization [facility] Address [address] [place] [address] Care Team Providers Care Laboratory Technology Teacher Name Role Phone Unavailable Primary Care [...]
--- OUTSIDE RECORDS SUMMARY | 2024-06-23 09:45 | XMS_ITS | Encounter Summary ---
Author Organization [facility] Address [address] [place] [address] Care Team Providers Care Paint Technician Name Role Phone Unavailable Primary Care Provider Unavailabl e Encounter Details Date Type Department Care Team (Late st Contact Info) Description 07/06/[address] [facility] ORTHO SURGERY SCAN Orthopedic Surgery, Scan Social [...]
--- OUTSIDE RECORDS SUMMARY | 2024-06-23 09:45 | XMS_ITS | Clinical Summary ---
Author Organization [employer] Address [address] [facility] [address] [place] [address] Care Team Providers Care Director Of Enrollment Name Role Phone Unavailable Primary Care Provider [...] age to complete this topic Insurance MEDICARE [facility] [place] [id number]
[2024-06-23 10:03] LABS: Appearance Urine Clear; Color Urine Yellow; Glucose Urine UA Negative (Negative); Leukocyte Esterase Urine Trace (Negative); Nitrite Urine Negative (Negative); PH 8.5 (5.0-9.0); UMIC TRIGGER UA YES; Urine Blood Negative (Negative); Urine Ketones Negative (Negative); Urine Protein Negative (Neg-Trace)
[2024-06-23 10:06] LABS: Bacteria Urine None Seen (None Seen); Hyaline Casts Urine 0-2 /LPF (0-2); RBC Urine 0-2 /HPF (0-2); Squamous Epithelial Cell Urine 0-2 /HPF (0-2); WBC Urine 0-5 /HPF (0-5)
[2024-06-23 11:10] LABS: Alanine Aminotransferase 22 U/L (0-31); Albumin Level 4.4 g/dL (3.5-5.0); Alkaline Phosphatase 52 U/L (39-117); Anion Gap 13 (12-20); Aspartate Amino Transferase 25 U/L (5-31); Bilirubin Direct 0.1 mg/dL (0.0-0.5); Bilirubin Total 0.4 mg/dL (0.0-1.0); Blood Urea Nitrogen 22 mg/dL (9-16); Carbon Dioxide 29 mmol/L (22-29); Chloride 103 mmol/L (96-108); Estimated Glomerular Filt Rate 42; Glucose Random 137 mg/dL (60-115); Sodium 141 mmol/L (135-145); Total Protein 7.7 g/dL (6.5-8.0)
[2024-06-23 11:34] LABS: Thyroid Stimulating Hormone 3.41 uIU/mL (0.32-4.0)
== END 2024-06-23 09:04 | disposition home or self-care (01) ==
LOC: HO.LAB 09:03
PROVIDERS: PCP Internal Medicine; Visit Provider Internal Medicine
DX: E11.9 Type 2 diabetes mellitus without complications (principal)
CPT/HCPCS: 36415; 80048; 80076; 81001; 81003; 84443; 85027

== ENCOUNTER 2024-08-29 13:53 | Outpatient (AMB) | payer MEDICARE, SELFPAY ==
--- NOTE | 2024-08-29 14:15 | MHC.OFFVIS ---
Vital Signs 08/29/24 14:16 Height 5 ft 2 in Weight 160 lb 6 oz BMI 29.3 BP 190/79 H Blood Pressure Location Lt brachial Position Sitting Intake Visit Reasons: 6 month follow up visit, breast exam Intake Note: Patient is seen in office for 6 month follow up visit, breast exam. Pt c/o: denies any concerns mm sched: 10/30/24 Company Tanker Truck Driver: Company Tanker Truck Driver Present Accompanied by: Self / Same As Patient Allergies stephens [CHERRIES] Allergy (Severe, Verified 08/29/24 14:17) ANAPHYLAXIS apple [Apple] Allergy (Mild, Verified 08/29/24 14:17) ITCHING carrot [CARROT] Allergy (Mild, Verified 08/29/24 14:17) ITCHING shellfish derived Allergy (Mild, Verified 08/29/24 14:17) ITCHING strawberry [STRAWBERRY] Allergy (Mild, Verified 08/29/24 14:17) ITCHING watermelon Allergy (Mild, Verified 08/29/24 14:17) ITCHING pollen extracts [POLLEN] Adverse Reaction (Mild, Verified 08/29/24 14:17) COUGH,SNEEZING HPI Comments Details: 89-year-old female patient returning for follow-up breast examination. A mammogram dated 10/21/2021 revealed increased calcifications in the right breast not clearly vascular. These were felt to be high suspicion for malignancy and biopsy was recommended (BI-RADS 4). She subsequently underwent a right breast stereotactic guided biopsy at the [facility] on 10/29/2021. 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 A lumpectomy with needle localization was performed on 11/17/2021 to assure complete removal. No further atypical ductal hyperplasia or malignancy was identified. 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 After undergoing a lumpectomy she underwent evaluation by Radiation Oncology. The decision was made to avoid radiation therapy. She was started on tamoxifen for 5 years (Dr. Russo). Her most recent mammogram dated 10/26/2023 revealed postoperative changes but no mammographic evidence of malignancy (BI-RADS 3). She is scheduled for a yearly mammogram on 10/30/2024. [facility] Medical History Diabetes mellitus GERD (gastroesophageal reflux disease) Essential (primary) hypertension Osteoarthritis Generalized anxiety disorder Surgical History History of right knee joint replacement History of cataract surgery History of lumpectomy of right breast (11/17/21) H/O colonoscopy History of Oscar fundoplication History of left breast biopsy (04/28/16) History of esophagogastroduodenoscopy (EGD) S/P lumpectomy of breast (06/08/17) History of section Family History Father No problems noted. Mother No problems noted. Sister Breast cancer Daughter Diabetes mellitus Social History Household Members: Spouse and Children Housing: House Are you a primary customer care assistant to a significant other at home: No Do you presently have visiting nurse or other home services: No Alcohol intake: never Patient Tobacco Use Status: Never used Tobacco e-Cigarette/Vaping Use: Never Used Second Hand Smoke Exposure: No service: No Current occupational status: retired Cognitive needs: No Hearing needs: No Vision needs: Yes (GLASSES) Female Reproductive History Menstrual Age of Menarche: 16 Review of Systems Const All systems reviewed & are unremarkable except as noted in HPI and below Card Denies chest pain and Denies irregular heart rhythm Resp Denies cough, Denies excessive phlegm production and Denies wheezing GI Denies abdominal pain Denies nipple discharge Musc Reports arthralgias and Reports joint swelling Skin/Breast Details: Change in skin right breast upper inner quadrant Denies breast swelling, Denies breast skin changes, Denies breast pain, Denies breast mass and Denies nipple discharge Camilo/Lymph Denies lymphadenopathy Aller/Immun Denies wheezing Physical Exam Const General: no acute distress and well developed Nutritional Appearance: well nourished Orientation/consciousness: patient oriented x3 Limitations: no limitations Eyes Sclerae: sclerae normal EOM: EOMs intact bilaterally Chest Other: Left breast: Incision in the left breast is clean and intact without palpable nodules. No skin change, no nipple retraction, no nipple discharge, no palpable mass, no enlarged lymph nodes. Right breast: Incision in the right breast is clean, dry, and intact without redness or discharge. New skin changes noted below, no nipple retraction, no nipple discharge, no palpable mass, no enlarged lymph nodes Resp Effort & Inspection: normal respiratory effort, no stridor and not tachypneic Skin Other: Warm and dry, no rash Neuro Other: Mobility Assessment: 1. 3 meter assessment time (seconds) 5 2. Gait observations: Normal balance and gait General: patient oriented x3 Extrem General: Yes no clubbing, cyanosis or edema Assessment & Plan Assessment & Plan (1) Ductal carcinoma in situ (DCIS) of left breast: Code(s): D05.12 - Intraductal carcinoma in situ of left breast Category: Medical (2) Atypical ductal hyperplasia of right breast: Code(s): N60.91 - Unspecified benign mammary dysplasia of right breast Category: Medical Plan 88-year-old female patient previous history of DCIS left breast now presenting with atypical ductal hyperplasia bordering on DCIS of the right breast noted on stereotactic guided core biopsy. Right breast lumpectomy with needle localization was performed on 11/17/2021. Pathology revealed no additional atypical hyperplasia or malignancy. The patient will continue her follow-up with Dr. Russo. Examination today reveals no suspicious findings in either breast. Her most recent mammogram of 10/26/2023 revealed postoperative changes with no mammographic evidence of malignancy (BI-RADS 3). Diagnostic mammography is scheduled for 10/30/2024. I recommended six-month follow-up breast examination, sooner PRN. Coding Level of Care Code Est Pt Level 3 (80197) Complex EM visit Add On G2211 Diagnoses Ductal carcinoma in situ (DCIS) of left breast D05.12 Atypical ductal hyperplasia of right breast N60.91
[2024-08-29 14:16] VITALS: BP 190/79; BMI 29.3
--- OUTSIDE RECORDS SUMMARY | 2024-08-29 16:28 | XMS_ITS | Clinical Summary ---
Author Organization [facility] Address [address] [place] [address] Care Team Providers Care Sound System Installer Name Role Phone Unavailable Primary Care Provider Unavailabl e Social History Tobacco Use Types Packs/Day Years Used Date Smoking Tobacco: Never Assessed Comments Unknown Sex and Gender Information Value Date Recorded Sex Assigned at Not on file Legal Sex Female 6:38 PM EST Gender Identity Not on file Sexual Orientation Not on file Plan of Treatment Health Maintenance Due Date Last Done Comments DTaP/Tdap/Td Vaccines (1 - Tdap) 1954 Pneumococcal Vaccines 50+ (1 of 1 - PCV) 05/23/1987 Zoster (Shingles) Vaccine (1 of 2) 05/23/1987 RSV Vaccine 60 years and old er and Patients (1 - 1-dose 75+ series) 2012 COVID-19 Vaccine (2023-2 5 season) 2023 Hepatitis B Vaccines Aged Out No long er eligible based on patient's age to complete this topic
== END 2024-08-29 14:27 | disposition home or self-care (01) ==
LOC: HO.HGS 13:53
PROVIDERS: PCP Internal Medicine; Visit Provider Surgery
DX: D05.12 Intraductal carcinoma in situ of left breast (principal); N60.91 Unspecified benign mammary dysplasia of right breast
CPT/HCPCS: 99213; G2211

== ENCOUNTER → 2024-08-29 13:53 | Outpatient (BNVA) | payer MEDICARE, SELFPAY | PROVIDERS: PCP Internal Medicine; Visit Provider Surgery | DX: D05.12 Intraductal carcinoma in situ of left breast (principal); N60.91 Unspecified benign mammary dysplasia of right breast | CPT/HCPCS: 99212 ==

== ENCOUNTER 2024-10-30 08:47 | Outpatient (REF) | payer MEDICARE, SELFPAY ==
--- NOTE | ~2024-10-30 | MM_ITS ---
EXAMINATION: MM DIAGNOSTIC DIGITAL BREAST TOMOSYNTHESIS, BILATERAL CLINICAL INFORMATION: History of bilateral breast cancer right in 2021 status post lumpectomy and left in 2017 post lumpectomy. COMPARISON: Mammography: Comparison is made with relevant prior exams. TECHNIQUE: Digital breast mammography with tomosynthesis is performed in both the craniocaudal and mediolateral oblique views along with computer-aided detection (CAD). FINDINGS: There are scattered areas of fibroglandular density (ACR BI-RADS breast composition Category b). Bilateral post lumpectomy changes are stable. There are no significant masses, abnormal calcifications, or other abnormalities. Results are provided to the patient at time of visit by the technologist. MM/MM tomosynthesis diagnostic BI IMPRESSION: There are no significant changes from prior study. ASSESSMENT: BI-RADS BI-RADS 2 - Benign Findings RECOMMENDATION: 1 year F/U This patient's information was entered into a reminder system with a target due date for their next mammogram. Electronically signed by: Sarah John DO 10/30/2024 10:12 AM EDT
--- OUTSIDE RECORDS SUMMARY | 2024-10-30 09:10 | XMS_ITS ---
Author Name [facility] Organization Unknown Care Team Organization Name Specialty Phone Email Start Date End [facility] 07/06/2023
--- OUTSIDE RECORDS SUMMARY | 2024-10-30 09:10 | XMS_ITS | Clinical Summary ---
Author Organization [facility] Address [address] [place] [address] Care Team Providers Care Heating Operators Engineer Name Role Phone Unavailable Primary Care Provider [...]
--- OUTSIDE RECORDS SUMMARY | 2024-10-30 09:10 | XMS_ITS | Clinical Summary ---
Author Organization [employer] Address [address] [facility] [address] [place] [address] Care Team Providers Care Cutting And Printing Machine Operator Name Role Phone Unavailable Primary Care Provider Unavailabl e Immunizations Immunization Administration Dates Next Due Influenza, seasonal, injectable, [...] DTaP/Tdap/Td Vaccines (1 - Tdap) 12/07/2018 12/06/2018 COVID-19 Vaccine ( season) 2024 12/08/2023, 02/03/2022, 08/12/2021, Additional history exists Influenza Vaccine (#1) 2024 , 03/01/2023, 03/05/2022, Additional history exists Pneumococcal Vaccine: 50+ Years Completed 12/06/2018, 01/08/2016 HIB Vaccines Aged Out No longer eligi [...] patient's age to complete this topic Meningococcal B Vaccine Aged Out No l onger eligible based on patient's age to complete this topic Meningococcal Vaccine Aged Out No ryan shelly eligible based on patient's age to complete this topic RSV under 20 months Aged Out No longe r eligible based on patient's age to complete this topic Rotavirus Vaccines Aged Out No longer eligible based on patient's age to complete this topic Insurance [place] [phone] [facility] MEDEX CARE
== END 2024-10-30 08:48 | disposition home or self-care (01) ==
LOC: HO.MAMMO 08:47
PROVIDERS: PCP Internal Medicine; Visit Provider Surgery
DX: Z85.3 Personal history of malignant neoplasm of breast (principal)
CPT/HCPCS: 77062; 77066

== ENCOUNTER → 2024-10-30 09:00 | Outpatient (BNV) | payer MEDICARE, SELFPAY | PROVIDERS: PCP Internal Medicine; Visit Provider Internal Medicine | DX: Z85.3 Personal history of malignant neoplasm of breast (principal) | CPT/HCPCS: 77066; G0279 ==

== ENCOUNTER 2025-01-11 09:20 | Outpatient (AMB) | payer MEDICARE, SELFPAY ==
--- NOTE | 2025-01-11 09:37 | A.OFFPC_ITS ---
Vital Signs 01/11/25 09:38 Height 5 ft 2 in Weight 158 lb 8 oz BMI 29.0 BP 142/70 H Blood Pressure Location Lt brachial Position Sitting Pulse 112 H Pulse Source Pulse Oximeter Temp 97.1 F Temp Source Temporal Artery Scan Pulse Oximetry (%) 94 Oxygen Delivery Method Room Air Intake Visit Reasons: 6mth f/u Intake Note: Patient is here to follow up on DM, HTN, GERD, OA. Fish Net Maker Required: No Blocker And Polisher Gold Wheel: Not Required per policy Accompanied by: Self / Same As Patient Allergies stephens (CHERRIES) Allergy (Severe, Verified 01/11/25 09:38) ANAPHYLAXIS apple (Apple) Allergy (Mild, Verified 01/11/25 09:38) ITCHING carrot (CARROT) Allergy (Mild, Verified 01/11/25 09:38) ITCHING shellfish derived Allergy (Mild, Verified 01/11/25 09:38) ITCHING strawberry (STRAWBERRY) Allergy (Mild, Verified 01/11/25 09:38) ITCHING watermelon Allergy (Mild, Verified 01/11/25 09:38) ITCHING pollen extracts (POLLEN) Adverse Reaction (Mild, Verified 01/11/25 09:38) COUGH,SNEEZING Tobacco use date assessed: 01/11/25 Fall risk assessment: No Falls in past year Last assessed Fall Risk: 01/11/25 Dental Screening Dental Screen Date: 06/15/24 [facility] Medical History Diabetes mellitus GERD (gastroesophageal reflux disease) Essential (primary) hypertension Osteoarthritis Generalized anxiety disorder Surgical History History of right knee joint replacement History of cataract surgery History of lumpectomy of right breast (11/17/21) H/O colonoscopy History of Oscar fundoplication History of left breast biopsy (04/28/16) History of esophagogastroduodenoscopy (EGD) S/P lumpectomy of breast (06/08/17) History of section Family History Father No problems noted. Mother No problems noted. Sister Breast cancer Daughter Diabetes mellitus Social History Household Members: Spouse and Children Housing: House Are you a primary health care sanitary technician to a significant other at home: No Do you presently have visiting nurse or other home services: No Alcohol intake: never Patient Tobacco Use Status: Never used Tobacco e-Cigarette/Vaping Use: Never Used Second Hand Smoke Exposure: No service: No Current occupational status: retired Cognitive needs: No Hearing needs: No Vision needs: Yes (GLASSES) Female Reproductive History Menstrual Age of Menarche: 16 Questionnaire Thrive Questionnaire Date Thrive assessed: 06/15/24 JENNIFER-7 AMB Questionnaire JENNIFER-7 Date JENNIFER - 7 assessed: 06/15/24 Source: Developed by Drs. Harinder Tovar, Berkley Lizama, Gray Jules and colleagues, with an educational kimberly from [employer]. Physical exam (Primary Care) Vital Signs: Last Vital Signs Temp 97.1 F 01/11/25 09:38 Pulse 112 H 01/11/25 09:38 BP 142/70 H 01/11/25 09:38 Pulse Ox 94 01/11/25 09:38 Oxygen Delivery Method Room Air 01/11/25 09:38 BMI result Body Mass Index 29.0 Tobacco/Smoking Status: Tobacco use Status Tobacco use date assessed 01/11/25 01/11/25 09:44 Patient Tobacco Use Status Never used Tobacco 01/11/25 09:44 e-Cigarette/Vaping Use Never Used 01/11/25 09:44 Thrive Assessment: Date of Thrive Assessment Date Thrive assessed 06/15/24 01/11/25 09:44 Results AMB Hemoglobin A1c AMB Hemoglobin A1c 6.6 % Last Edit by MIGEL Reina on 01/11/25 09:51 Results Reviewed Results Reviewed: Laboratory Last Values Hgb A1c (Clinic) 6.6 % (4.0-6.0) H 01/11/25 09:37 Coding Level of Care Code Est Pt Level 4 (36217) Complex EM visit Add On G2211 Diagnoses Osteoarthritis of spine, unspecified spinal osteoarthritis complication status, unspecified spinal region M47.9 Osteoarthritis location: spine Spinal region: unspecified Spinal osteoarthritis complication: unspecified spinal osteoarthritis Assessment & Plan Assessment & Plan (1) Osteoarthritis: Code(s): M19.90 - Unspecified osteoarthritis, unspecified site Category: Medical Qualifiers: Osteoarthritis location: spine Spinal region: unspecified Spinal osteoarthritis complication: unspecified spinal osteoarthritis Qualified Code(s): M47.9 - Spondylosis, unspecified Plan: History of Present Illness - The patient is an 89-year-old female presenting with suspected arthritis. - She reports pain for over a month, primarily affecting her side and leg, initially severe but now somewhat improved. - Pain management includes Tylenol and occasional Meloxicam, with concerns about kidney health limiting Meloxicam use. - Preventative care includes influenza and COVID-19 vaccinations. - Blood pressure was slightly elevated but not concerning. Social History Review of Systems - Musculoskeletal: Reports pain in the side and leg, suspected to be arthritis. - Cardiovascular: Denies any significant issues, though blood pressure was noted to be slightly elevated. - Neurological: Denies any neurological symptoms. - Ophthalmologic: Reports vision is fine, though due for a yearly check-up. Physical Exam General: Cooperative and healthy appearing Nutritional Appearance: Well nourished Orientation/consciousness: Patient oriented x3 Limitations: No limitations Head: Normal to inspection General: Appearance normal, both eyes and all related structures Neck: Normal visual inspection Chest: Normal palpation of entire chest wall Respiratory: Breathe in and out. Everything is good. ormal respiratory effort Neurology: Patient oriented x3. Obstructing a little nerve causing pain. Results Plan - Continue Tylenol for pain, with Meloxicam as needed, monitoring kidney health. - Use heating pads and exercise for arthritis relief. - Monitor blood pressure, though current levels are not concerning. - Schedule a follow-up in three months. Discussion Notes I discussed with the patient the likelihood of arthritis causing her pain and recommended using Tylenol and Meloxicam cautiously due to potential kidney effects. We also talked about using heating pads and exercise to manage symptoms. I reassured her about her blood pressure and advised a follow-up in three months. Patient Instructions - Take Tylenol for pain relief, and use Meloxicam occasionally, being mindful of kidney health. - Apply heating pads and engage in regular exercise to help with arthritis sympt oms. - Monitor your blood pressure at home, but don't worry about slight elevations. - Schedule and attend a follow-up appointment in three months. Orders: Orders AMB Hemoglobin A1c Today E11.9 - Type 2 diabetes mellitus without complications
[2025-01-11 09:38] VITALS: BP 142/70; PULSE 112; TEMP 36.2; O2SAT 94; BMI 29.0
--- OUTSIDE RECORDS SUMMARY | 2025-01-11 10:21 | XMS_ITS | Clinical Summary ---
Author Organization [facility] Address [address] [place] [address] Care Team Providers Care Regional Business Manager Name Role Phone Unavailable Primary Care Provider Unavailabl e Social History Tobacco Use Types Packs/Day Years Used Date Smoking Tobacco: Never Assessed Comments Unknown Sex and Gender Information Value Date Recorded Sex Assigned at Not on file Legal Sex Female 6:38 PM EST Gender Identity Not on file Sexual Orientation Not on file Plan of Treatment Health Maintenance Due Date Last Done Comments Advance Care Planning 1935 DTaP/Tdap/Td Vaccines (1 - Tdap) 1956 Pneumococcal Vaccines 50+ (1 of 1 - PCV) 05/23/1987 Zoster (Shingles) Vaccine (1 of 2) 05/23/1987 RSV Vaccine 50 years and old er and Patients (1 - 1-dose 75+ series) 2012 COVID-19 Vaccine ( - 2023-2 5 season) 2024 Hepatitis B Vaccines Aged Out No long er eligible based on patient's age to complete this topic
--- OUTSIDE RECORDS SUMMARY | 2025-01-11 10:21 | XMS_ITS | Clinical Summary ---
Author Organization [employer] Address [address] [facility] [address] [place] [address] Care Team Providers Care Barrel Repairer Name Role Phone Unavailable Primary Care Provider Unavailabl e Encounters Date Type Department Care Team Description 12/28/2024 11:00 AM EDT Immunization [facility] [address] [place] [address] Sana Garay RN Encounter for immunization from Last 3 Months Immunizations Immunization Administration Dates Next Due Influenza, High Dose Seasonal, Preservative Free 12/28/2024 Influenza, seasonal, injectable, preservative fr ee 12/08/2023 Pfizer Covid-19 Vaccine 12+ 12/28/2024, Social History Tobacco Use Types Packs/Day Years [...] Years Completed 12/06/2018, 01/08/2016 COVID-19 Vaccine Completed 12/28/2024, , 02/03/2022, Additional history exists Influenza Vaccine Completed 12/28/2024, , 03/01/2023, Additional history exists HIB Vaccines Aged Out [...] age to complete this topic Insurance MEDICARE [facility] MEDEX MEDICARE SUPPLEMENT
--- OUTSIDE RECORDS SUMMARY | 2025-01-11 10:21 | XMS_ITS | Encounter Summary ---
Author Organization [facility] Address [address] [place] [address] Care Team Providers Care Supervisor Felling Bucking Name Role Phone Unavailable Primary Care Provider Unavailabl e Encounter Details Date Type Department Care Team (Late st Contact Info) Description 07/06/2023 Scanned Document [facility] ORTHO SURGERY SCAN Orthopedic Surgery, Scan [...]
== END 2025-01-11 10:21 | disposition home or self-care (01) ==
LOC: HO.HMCH 09:20
PROVIDERS: PCP Internal Medicine; Visit Provider Internal Medicine
DX: M47.9 Spondylosis, unspecified (principal); E11.9 Type 2 diabetes mellitus without complications

== ENCOUNTER 2025-01-11 09:20 | Outpatient (REF) | payer MEDICARE, SELFPAY ==
[2025-01-11 11:21] LABS: Hematocrit 39.8 % (37.0-47.0); Hemoglobin 13.2 g/dl (12.0-16.0); Mean Corpuscular HGB Conc 33.2 g/dl (31.0-35.0); Mean Corpuscular Hemoglobin 28.6 pg (27.0-33.0); Mean Corpuscular Volume 86.3 fL (80.0-98.0); NRBC Abs Auto 0.000 X10*3/uL (0.0-0.012); NRBC Pct Auto 0.0 /100WBC (0.0-0.2); Platelet Count 295 X10*3/uL (160-400); Red Blood Count 4.61 X10*6/uL (4.20-5.50); White Blood Count 7.2 X10*3/uL (4.8-10.8)
[2025-01-11 11:34] LABS: Appearance Urine Clear; Glucose Urine UA Negative (Negative); PH 6.5 (5.0-9.0); Specific Gravity - Urine 1.010 (1.005-1.025); UMIC TRIGGER UA YES
[2025-01-11 11:50] LABS: Alanine Aminotransferase 23 U/L (0-31); Albumin Level 4.8 g/dL (3.5-5.0); Alkaline Phosphatase 48 U/L (39-117); Anion Gap 11 (12-20); Aspartate Amino Transferase 31 U/L (5-31); Blood Urea Nitrogen 22 mg/dL (9-16); Calcium 10.4 mg/dL (8.4-10.2); Carbon Dioxide 30 mmol/L (22-29); Chloride 102 mmol/L (96-108); Cholesterol 206 mg/dL (<200); Estimated Glomerular Filt Rate 49; HDL Cholesterol 47 mg/dL (>40); Potassium 3.7 mmol/L (3.3-5.1); Sodium 139 mmol/L (135-145); Total Protein 8.2 g/dL (6.5-8.0); Triglycerides 215 mg/dL (<150)
== END 2025-01-11 09:21 | disposition home or self-care (01) ==
LOC: HO.LAB 09:20
PROVIDERS: PCP Internal Medicine; Visit Provider Internal Medicine
DX: E11.9 Type 2 diabetes mellitus without complications (principal); M47.9 Spondylosis, unspecified
CPT/HCPCS: 36415; 80048; 80061; 80076; 81001; 83036; 85027; 99212

== ENCOUNTER 2025-02-26 13:47 | Outpatient (AMB) | payer MEDICARE, SELFPAY ==
--- NOTE | 2025-02-26 13:48 | A.OFFVIS_ITS ---
Vital Signs 02/26/25 13:57 Height 5 ft 2 in Weight 161 lb 2 oz BMI 29.5 BP 166/74 H Blood Pressure Location Lt brachial Position Sitting Pulse 109 H Intake Visit Reasons: 6 month follow up visit, breast exam Intake Note: Patient is seen in office for 6 month follow up visit, breast exam. Pt c/o: denies any concerns mm:10/30/24 Seo Associate Required: No Roller Inspector And Mender: Roller Inspector And Mender Present Accompanied by: Self / Same As Patient Allergies stephens (CHERRIES) Allergy (Severe, Verified 02/26/25 13:57) ANAPHYLAXIS apple (Apple) Allergy (Mild, Verified 02/26/25 13:57) ITCHING carrot (CARROT) Allergy (Mild, Verified 02/26/25 13:57) ITCHING shellfish derived Allergy (Mild, Verified 02/26/25 13:57) ITCHING strawberry (STRAWBERRY) Allergy (Mild, Verified 02/26/25 13:57) ITCHING watermelon Allergy (Mild, Verified 02/26/25 13:57) ITCHING pollen extracts (POLLEN) Adverse Reaction (Mild, Verified 02/26/25 13:57) COUGH,SNEEZING HPI Comments Details: 89-year-old female patient returning for follow-up breast examination. A mammogram dated 10/21/2021 revealed increased calcifications in the right breast not clearly vascular. These were felt to be high suspicion for malignancy and biopsy was recommended (BI-RADS 4). She subsequently underwent a right breast stereotactic guided biopsy at the [facility] on 10/29/2021. 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 A lumpectomy with needle localization was performed on 11/17/2021 to assure complete removal. No further atypical ductal hyperplasia or malignancy was identified. 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 After undergoing a lumpectomy she underwent evaluation by Radiation Oncology. The decision was made to avoid radiation therapy. She was started on tamoxifen for 5 years (Dr. Russo). Her most recent mammogram dated 10/30/2024 revealed no significant change from the prior mammogram with routine follow up in 1 year (BI-RADS 2). Her next mammogram is scheduled on 11/01/2025. [facility] Medical History Diabetes mellitus GERD (gastroesophageal reflux disease) Essential (primary) hypertension Osteoarthritis Generalized anxiety disorder Surgical History History of right knee joint replacement History of cataract surgery History of lumpectomy of right breast (11/17/21) H/O colonoscopy History of Oscar fundoplication History of left breast biopsy (04/28/16) History of esophagogastroduodenoscopy (EGD) S/P lumpectomy of breast (06/08/17) History of section Family History Father No problems noted. Mother No problems noted. Sister Breast cancer Daughter Diabetes mellitus Social History Household Members: Spouse and Children Housing: House Are you a primary career resource technician to a significant other at home: No Do you presently have visiting nurse or other home services: No Alcohol intake: never Patient Tobacco Use Status: Never used Tobacco e-Cigarette/Vaping Use: Never Used Second Hand Smoke Exposure: No service: No Current occupational status: retired Cognitive needs: No Hearing needs: No Vision needs: Yes (GLASSES) Female Reproductive History Menstrual Age of Menarche: 16 Review of Systems Const All systems reviewed & are unremarkable except as noted in HPI and below Card Denies chest pain and Denies irregular heart rhythm Resp Denies cough, Denies excessive phlegm production and Denies wheezing GI Denies abdominal pain Denies nipple discharge Musc Reports arthralgias and Reports joint swelling Skin/Breast Details: Change in skin right breast upper inner quadrant Denies breast swelling, Denies breast skin changes, Denies breast pain, Denies breast mass and Denies nipple discharge Camilo/Lymph Denies lymphadenopathy Aller/Immun Denies wheezing Physical Exam Const General: no acute distress and well developed Nutritional Appearance: well nourished Orientation/consciousness: patient oriented x3 Limitations: no limitations HEENT Head: Yes normocephalic Eyes Sclerae: sclerae normal EOM: EOMs intact bilaterally Chest Other: Left breast: Incision in the left breast is clean and intact without palpable nodules. No skin change, no nipple retraction, no nipple discharge, no palpable mass, no enlarged lymph nodes. Right breast: Incision in the right breast is clean, dry, and intact without redness or discharge. New skin changes noted below, no nipple retraction, no nipple discharge, no palpable mass, no enlarged lymph nodes Resp Effort & Inspection: normal respiratory effort, no stridor and not tachypneic Skin Other: Warm and dry, no rash Neuro Other: Mobility Assessment: 1. 3 meter assessment time (seconds) 5 2. Gait observations: Normal balance and gait General: patient oriented x3 Extrem General: Yes no clubbing, cyanosis or edema Assessment & Plan Assessment & Plan (1) Ductal carcinoma in situ (DCIS) of left breast: Code(s): D05.12 - Intraductal carcinoma in situ of left breast Category: Medical (2) Atypical ductal hyperplasia of right breast: Code(s): N60.91 - Unspecified benign mammary dysplasia of right breast Category: Medical Plan 88-year-old female patient previous history of DCIS left breast now presenting with atypical ductal hyperplasia bordering on DCIS of the right breast noted on stereotactic guided core biopsy. Right breast lumpectomy with needle localization was performed on 11/17/2021. Pathology revealed no additional atypical hyperplasia or malignancy. The patient will continue her follow-up with Dr. Russo. Examination today reveals no suspicious findings in either breast. Her most recent mammogram of 10/30/2024 revealed postoperative changes with no mammographic evidence of malignancy (BI-RADS 3). Diagnostic mammography is scheduled for 11/01/2025. I recommended six-month follow-up breast examination, sooner PRN. Coding Level of Care Code Est Pt Level 3 (89101) Complex visit Add On G2211 Diagnoses Ductal carcinoma in situ (DCIS) of left breast D05.12 Atypical ductal hyperplasia of right breast N60.91
[2025-02-26 13:57] VITALS: BP 166/74; PULSE 109; BMI 29.5
--- OUTSIDE RECORDS SUMMARY | 2025-02-26 22:33 | XMS_ITS | Clinical Summary ---
Author Organization [facility] Address [address] [place] [address] Care Team Providers Care Guide Excursion Name Role Phone Unavailable Primary Care Provider [...]
--- OUTSIDE RECORDS SUMMARY | 2025-02-26 22:33 | XMS_ITS | Encounter Summary ---
Author Organization [facility] Address [address] [place] [address] Care Team Providers Care Powderman Name Role Phone Unavailable Primary Care Provider Unavailabl e Encounter Details Date Type Department Care Team (Late st Contact Info) Description 07/06/[address] [facility] ORTHO SURGERY SCAN Orthopedic Surgery, Scan [...]
--- OUTSIDE RECORDS SUMMARY | 2025-02-26 22:33 | XMS_ITS | Clinical Summary ---
Author Organization [employer] Address [address] [place] [address] Care Team Providers Care Hammer Shop Supervisor Name Role Phone Unavailable Primary Care Provider Unavailabl e Encounters Date Type Department Care Team Description 12/28/2024 11:00 AM EDT Immunization [facility] [address] [place], [place] [id number] Sana Garay RN Encounter for immunization from [...] (1 - Tdap) 12/07/2018 12/06/2018 COVID-19 Vaccine (8 - season) 2025 12/28/2024, 12/08/2023, 02/03/2022, Additional history exists Pneumococcal Vaccine: 50+ Years Completed 12/06/2018, 01/08/2016 Influenza Vaccine Completed 12/28/2024, , 03/01/2023, Additional [...] age to complete this topic Insurance [place] [id number] [facility] [employer] MEDICARE SUPPLEMENT
== END 2025-02-26 14:07 | disposition home or self-care (01) ==
LOC: HO.HGS 13:48
PROVIDERS: PCP Internal Medicine; Visit Provider Surgery
DX: D05.12 Intraductal carcinoma in situ of left breast (principal); N60.91 Unspecified benign mammary dysplasia of right breast
CPT/HCPCS: 99213; G2211

== ENCOUNTER → 2025-02-26 13:47 | Outpatient (BNVA) | payer MEDICARE, SELFPAY | PROVIDERS: PCP Internal Medicine; Visit Provider Surgery | DX: Z12.39 Encounter for other screening for malignant neoplasm of breast (principal); D05.12 Intraductal carcinoma in situ of left breast; N60.91 Unspecified benign mammary dysplasia of right breast | CPT/HCPCS: 99212 ==